=== PATIENT | female | born 1935 | race African-American/Black ===

== ENCOUNTER → 2016-09-06 | Outpatient (CLI) | payer MEDICARE, OTHER ==
--- NOTE | 2016-09-06 13:26 | RADIOLOGY REPORT (SQ) ---
EXAM DESCRIPTION: CT CHEST WITHOUT COMPLETED DATE/TIME: 09/06/2016 12:41 pm REASON FOR STUDY: COUGH R05 COUGH COMPARISON: None. TECHNIQUE: CT scan performed of the chest without intravenous contrast. Images reviewed with lung, soft tissue and bone windows. Reconstructed coronal and sagittal MPR images reviewed. All images st ored on PACS. All CT scanners at this facility use dose modulation, iterative reconstruction, and/or weight based d osing when appropriate to reduce radiation dose to as low as reasonably achievable (ALARA). [facility]: Dose Right [facility]: CareDose [facility]: Dose Right [facility]: Teradose 4D [facility]: Misoca RADIATION DOSE: 7.53 mGy. LIMITATIONS: No technical limitations. FINDINGS: LUNGS AND PLEURA: No masses, infiltrates, pneumothorax. No pleural effusions, calcificati ons. Chronic appearing pleural and parenchymal changes are identified. HILAR AND MEDIASTINAL STRUCTURES: No identified masses or abnormal nodes. No obvious aneurysm. HEART AND VASCULAR STRUCTURES: No aneurysm. No pericardial effusion. UPPER ABDOMEN: No significant findings. Limited exam. THYROID AND OTHER SOFT TISSUES: No masses. No adenopathy. BONES: No significant finding. HARDWARE: None in the chest. OTHER: No other significant findings. IMPRESSION: NO SIGNIFICANT FINDING ON NON-CONTRASTED CHEST CT. TECHNICAL DOCUMENTATION: JOB ID: [id number] Quality ID # [id number]: Final reports with documentation of one or more dose reduction techniques (e.g., Au tomated exposure control, adjustment of the mA and/or kV according to patient size, use of iterative reconstruction technique) 2010 [employer]- All Rights Reserved
== END ==
LOC: RAD 12:32
PROVIDERS: ATTEND Internal Medicine
DX: R05 Cough (principal)
CPT/HCPCS: 71250

== ENCOUNTER 2016-10-13 08:46 | Day surgery (SDC) | payer MEDICARE, OTHER ==
[2016-10-05 11:22] LABS: APPEARANCE,URINE CLEAR; BILIRUBIN,URINE NEGATIVE (NEGATIVE); GLUCOSE, URINE NEGATIVE (NEGATIVE); KETONES,URINE NEGATIVE (NEGATIVE); LEUKOCYTE ESTERASE,URINE NEGATIVE (NEGATIVE); NITRITE,URINE NEGATIVE (NEGATIVE); PROTEIN,URINE NEGATIVE (NEGATIVE); URINE SPECIFIC GRAVITY 1.012; UROBILINOGEN,URINE NEGATIVE mg/dL (<2.0)
[2016-10-05 11:40] LABS: HEMATOCRIT 37.9 % (36.0-47.0); HEMOGLOBIN 12.1 g/dL (12.0-15.5); HGB HCT DIFFERENCE -1.6; MEAN CORPUSCULAR HEMOGLOBIN 25.1 pg (27.0-33.4); MEAN CORPUSCULAR HGB CONC 31.8 g/dL (32.0-36.0); MEAN CORPUSCULAR VOLUME 79 fl (80-97); RED BLOOD COUNT 4.81 10^6/uL (3.72-5.28); RED CELL DISTRIBUTION WIDTH 16.8 % (11.5-14.0)
[2016-10-05 11:43] LABS: ALANINE AMINOTRANSFERASE 19 U/L (9-52); ALKALINE PHOSPHATASE 119 U/L (38-126); ANION GAP 10 (5-19); ASPARTATE AMINO TRANSFERASE 15 U/L (14-36); BILIRUBIN,DIRECT 0.3 mg/dL (0.0-0.4); BILIRUBIN,TOTAL 0.5 mg/dL (0.2-1.3); BLOOD UREA NITROGEN 17 mg/dL (7-20); CALCIUM 9.4 mg/dL (8.4-10.2); CARBON DIOXIDE 33 mmol/L (22-30); CHLORIDE 99 mmol/L (98-107); CREATININE RESULT 0.75 mg/dL (0.52-1.25); GLUCOSE 142 mg/dL (75-110); POTASSIUM 3.7 mmol/L (3.6-5.0); SODIUM 142.3 mmol/L (137-145); TOTAL PROTEIN 7.3 g/dL (6.3-8.2)
--- NOTE | 2016-10-05 12:35 | RADIOLOGY REPORT (SQ) ---
EXAM DESCRIPTION: CHEST PA/LATERAL COMPLETED DATE/TIME: 10/05/2016 11:29 am REASON FOR STUDY: PRE OP COMPARISON: CT chest 09/06/2016 Two-view chest 02/24/2012 EXAM PARAMETERS: NUMBER OF VIEWS: two views TECHNIQUE: Digital Frontal and Lateral radiographic views of the chest acquired. RADIATION DOSE: NA LIMITATIONS: none FINDINGS: LUNGS AND PLEURA: Stable right-sided pleuroparenchymal scarring at the apex. Lungs are hyperinflated with flattening of the hemidiaphragms. Minimal Bandlike scarring or atelectasis at the left lung base. Right lung grossly clear. No pleura l effusions. No pneumothorax. MEDIASTINUM AND HILAR STRUCTURES: No masses or contour abnormalities. HEART AND VASCULAR STRUCTURES: Stable moderate cardiomegaly BONES: Osteoporotic without acute thoracic compression deformity HARDWARE: None in the chest. OTHER: No other significant finding. IMPRESSION: Minimal left basilar atelectasis Lungs are hyperinflated from obstructive disease. Moderate cardiomegaly TECHNICAL DOCUMENTATION: JOB ID: [id number] [employer]- All Rights Reserved
--- NOTE | 2016-10-05 17:04 | EKG REPORT ---
SEVERITY:- ABNORMAL ECG - SINUS RHYTHM LEFT ANTERIOR FASCICULAR BLOCK LEFT VENTRICULAR HYPERTROPHY : Confirmed by: Carolyn Multani MD 05-Oct-2016 17:03:29
[~2016-10-13 08:46] MED LIST: ACETAMINOPHEN 100 ML IV PRN; CEFAZOLIN 2 GM/D5W RTU 2 GM/50 ML RTUPB IV PRN; LACTATED RINGERS 1000 ML IV PRN; LIDOCAINE 0.5% INJ-PF (5 MG/ML) 50 ML SDV SUBCUT PRN
[2016-10-13] MEDS ORDERED: BUPIVACAINE INJ/PF LIPOSOME/PF 266 MG/20 ML SDV ONE (09:33)
[2016-10-13] MEDS ORDERED: BUPIVACAINE HCL 0.5%-EPI 1:200000 INJ/PF 30 ML VIAL ONE (09:33)
[2016-10-13] MEDS ORDERED: ALBUTEROL SULFATE 0.083% NEB 2.5 MG/3 ML AMPUL NEB ONE ×2 (10:33→10:45)
[2016-10-13] MEDS ORDERED: FAMOTIDINE INJ/PF 20 MG/2 ML SDV IV ONE (10:45)
[2016-10-13] MEDS ORDERED: MIDAZOLAM 2 MG/2 ML INJ ONE (10:48)
[2016-10-13] MEDS ORDERED: FENTANYL CITRATE INJ/PF 100 MCG/2 ML AMPUL ONE (10:48)
[2016-10-13] MEDS ORDERED: PROPOFOL INJ 200 MG/20 ML VIAL IV ONE (10:49)
[2016-10-13] MEDS ORDERED: FENTANYL CITRATE INJ/PF 100 MCG/2 ML AMPUL IV PRN ×3 (11:50)
[2016-10-13] MEDS ORDERED: MEPERIDINE HCL/PF INJ 25 MG/1 ML DISP.SYRIN IV PRN (11:50)
[2016-10-13] MEDS ORDERED: MORPHINE SULFATE 10 MG/ML INJ IV PRN (11:50)
[2016-10-13] MEDS ORDERED: DIPHENHYDRAMINE HCL 50 MG/ML VIAL IV PRN (11:50)
[2016-10-13] MEDS ORDERED: PROMETHAZINE HCL INJ 25 MG/1 ML VIAL IV PRN ×2 (11:50)
[2016-10-13] MEDS ORDERED: OXYCODONE-ACETAMINOPHEN 5-325 MG TABLET PO PRN ×2 (11:50)
[2016-10-13] MEDS ORDERED: ACETAMINOPHEN 100 ML IV ONE (12:45)
--- NOTE | 2016-10-13 13:18 | OPERATIVE REPORT E ---
Operative Report NAME: ALEXIS HOWARD : 1935 AGE: 81Y DATE OF SURGERY: 10/13/2016 ROOM: PREOPERATIVE DIAGNOSIS: Grade 4 cystocele and lax perineal body. POSTOPERATIVE DIAGNOSIS: Grade 4 cystocele and lax perineal body. OPERATION PERFORMED: Modified colpocleisis. SURGEON: HALLEY PARRA M.D. ANESTHESIA: General endotracheal. ESTIMATED BLOOD LOSS: 50 mL. SPECIMEN TO PATHOLOGY: None. FINDINGS: There was a grade 4 cystocele approximately the size of an orange extruding from the patient's vaginal introitus. The perineal body was very lax. The patient had been unable to retain even a Gellhorn pessary in the past. The rectum was actually fairly well supported for a couple cm inside the introitus. DESCRIPTION OF PROCEDURE: After discussing the risks, benefits, and alternatives of the procedure and obtaining informed consent, the patient was taken to the operating room where general anesthesia was achieved. She was positioned in the dorsal lithotomy position, prepped and draped in the usual standard fashion. A Bryant catheter was placed to keep the bladder drained. The most dependent portion of the prolapse was grasped with an Allis clamp. The tissue was circumferentially injected with 0.25% Marcaine with epinephrine. The tissue to be excised was incised in quadrants. The underlying bladder was dissected off the vaginal mucosa leaving as much of the endopelvic fascia on the bladder as possible. After excision of all of the redundant tissue, the bladder was reduced with pursestring sutures of 2-0 Vicryl. The final stitch was with 2-0 PDS. The bladder then slipped back into a normal position. The redundant vaginal mucosa had been excised. The mucosa was closed with 2-0 Vicryl. Attention was then turned to the perineal body. The perineal body was injected with 0.25% Marcaine with epinephrine up until just the distal part of the mucosa overlying the rectum was encountered. This was excised in a didier-shaped fashion. The small amount of underlying rectal mucosa was dissected off the vaginal mucosa. The levators were plicated with 0 Vicryl as well as the bulbocavernosus and transverse perineal muscles. The vaginal mucosa was closed with 2-0 Vicryl. Approximately 2 thirds of a bottle of Exparel, which had been mixed with 0.25% Marcaine was then injected around the perineal body and distal vulvar mucosa inferiorly for postop pain relief. The small remaining vagina was irrigated and packed with a vag pack. The patient was taken out of dorsal lithotomy and to recovery in stable condition. All sponge, needle, lap, and instrument counts were correct x2. DICTATING PHYSICIAN: HALLEY PARRA M.D. [id number] PHY#: [id number] ID: [id number] JOB#: [id number] ACCT: [id number] cc:HALLEY PARRA M.D. > MTDD
[2016-10-13] MEDS ORDERED: RINGERS SOLUTION,LACTATED 1,000 ML IV PRN (13:56)
[2016-10-13] MEDS ORDERED: ONDANSETRON HCL INJ/PF 4 MG/2 ML SDV IV PRN (13:56)
[2016-10-13] MEDS ORDERED: DEXAMETHASONE SOD PHOSPHATE INJ 4 MG/1 ML VIAL ONE (15:09)
[2016-10-13] MEDS ORDERED: GLYCOPYRROLATE INJ 0.4 MG/2 ML VIAL ONE ×2 (15:09→15:12)
[2016-10-13] MEDS ORDERED: ONDANSETRON HCL INJ/PF 4 MG/2 ML SDV ONE (15:09)
[2016-10-13] MEDS ORDERED: METOCLOPRAMIDE HCL INJ/PF 10 MG/2 ML SDV ONE (15:09)
[2016-10-13] MEDS ORDERED: SUCCINYLCHOLINE CHLORIDE INJ 200 MG/10 ML VIAL ONE (15:09)
[2016-10-13] MEDS ORDERED: NEOSTIGMINE METHYLSULFATE 10 MG/10 ML VIAL ONE (15:12)
[2016-10-13] MEDS ORDERED: GLYBURIDE 2.5 MG TABLET PO ONE (17:00)
[2016-10-14 06:57] LABS: ABSOLUTE LYMPHOCYTES (AUTO) 2.8 10^3/uL (0.5-4.7); ABSOLUTE MONOCYTES (AUTO) 1.6 10^3/uL (0.1-1.4); ABSOLUTE NEUT (AUTO) 12.5 10^3/uL (1.7-8.2); BASOPHILS % (AUTO) 0.2 % (0-2); EOSINOPHILS % (AUTO) 0.1 % (0-6); HEMOGLOBIN 10.9 g/dL (12.0-15.5); HGB HCT DIFFERENCE -1.3; LYMPHOCYTES % (AUTO) 16.6 % (13-45); MEAN CORPUSCULAR HEMOGLOBIN 25.5 pg (27.0-33.4); MEAN CORPUSCULAR HGB CONC 32.1 g/dL (32.0-36.0); MEAN CORPUSCULAR VOLUME 79 fl (80-97); MONOCYTES % (AUTO) 9.2 % (3-13); RED BLOOD COUNT 4.28 10^6/uL (3.72-5.28); RED CELL DISTRIBUTION WIDTH 16.6 % (11.5-14.0); SEGMENTED NEUTROPHILS % (AUTO) 73.9 % (42-78); WHITE BLOOD COUNT 16.9 10^3/uL (4.0-10.5)
[2016-10-14 07:18] LABS: ANION GAP 9 (5-19); BLOOD UREA NITROGEN 15 mg/dL (7-20); CALCIUM 9.1 mg/dL (8.4-10.2); CARBON DIOXIDE 32 mmol/L (22-30); CHLORIDE 101 mmol/L (98-107); CREATININE RESULT 0.81 mg/dL (0.52-1.25); GLUCOSE 78 mg/dL (75-110); POTASSIUM 3.1 mmol/L (3.6-5.0); SODIUM 141.7 mmol/L (137-145)
[2016-10-14] MEDS ORDERED: ACETAMINOPHEN 325 MG TABLET PO PRN (07:48)
[2016-10-14] MEDS ORDERED: POTASSIUM CHLORIDE 10 MEQ TABLET.SA PO SCH (08:00)
[2016-10-14] MEDS ORDERED: POLYETHYLENE GLYCOL 3350 POWDER 17 GM/1 PACKET PO ONE (09:00)
[2016-10-14 12:26] VITALS: BP 136/59
--- NOTE | 2016-10-14 13:09 | DISCHARGE SUMMARY E ---
Discharge Summary NAME: ALEXIS ZUNIGA : 1935 AGE: 81Y ADMITTED: 10/13/2016 DISCHARGED: 10/14/2016 INDICATION FOR ADMISSION: Grade IV cystocele with desire for colpocleisis versus a tight anterior/posterior repair. HOSPITAL COURSE: Ms. 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 She has been unable to retain pessaries as an outpatient. She elected surgical intervention. She does not plan to be sexually active in the future. She underwent a modified colpocleisis on 10/13/2016. Her bladder had been very distended but there was relatively good posterior support, therefore, after reduction of the marked cystocele with some foreshortening of her vagina. A tight perineorrhaphy was also performed. She had vaginal packing and Bryant catheter placed overnight. By the next morning, her creatinine was stable and hematocrit was 34. Her potassium had fallen to 3.1 and she was given a dose of p.o. K-dur. She had adequate pain control throughout with really no pain medicines as Exparel had been injected into the perineal region at the time of surgery. By the time of discharge, she was voiding without difficulty and had a bowel movement as well. There was only very light bleeding. DISCHARGE DIAGNOSES: 1. Grade IV cystocele. 2. Lax perineal body. PLAN: Patient is discharged to home with light activity and pelvic rest. She was given a sitz bath kit to use daily. She was given a prescription for Vicodin 5/325 one to two p.o. q.i.d. p.r.n. pain, #30, no refills. She has followup on October 21. She will follow up sooner should she develop fever, UTI symptoms, increasing pain, or foul smelling discharge or heavy bleeding. DICTATING PHYSICIAN: HALLEY PARRA M.D. [id number] PHY#: [id number] ID: [id number] JOB#: [id number] ACCT: [id number] cc:HALLEY PARRA M.D. >
== END 2016-10-14 13:05 | disposition home or self-care (01) ==
LOC: OROUT 08:46 → 2N 13:51 → OROUT 10-14 13:05
PROVIDERS: ATTEND Specialist
PROC: 0ULG7ZZ Occlusion of Vagina, Via Natural or Artificial Opening (ICD-10-PCS; principal; 2016-10-13 11:00)
DX: N81.10 Cystocele, unspecified (principal); N93.9 Abnormal uterine and vaginal bleeding, unspecified; I10 Essential (primary) hypertension; J45.909 Unspecified asthma, uncomplicated; E78.5 Hyperlipidemia, unspecified; M06.9 Rheumatoid arthritis, unspecified; D64.9 Anemia, unspecified; E11.9 Type 2 diabetes mellitus without complications; Z96.659 Presence of unspecified artificial knee joint; Z96.641 Presence of right artificial hip joint; Z79.899 Other long term (current) drug therapy; Z79.82 Long term (current) use of aspirin; Z79.84 Long term (current) use of oral hypoglycemic drugs
CPT/HCPCS: 93005; 86900; 86901; 36415 ×2; 87086; 86850; 82962; 85025; 85027; 80048; 80053; 81001; 71020; 94799; 93010; 94640; 57120; J2250; J3490 ×2; J1100; J3010; A9270 ×3; J2765; J0330; J2405; J7120; J2704; S0028; J0690; J0131; C9290; 942

== ENCOUNTER → 2016-12-07 | Outpatient (CLI) | payer MEDICARE, OTHER ==
--- NOTE | 2016-12-07 10:01 | WOMENS IMAGING REPORT ---
EXAM DESCRIPTION: U/S ABDOMEN LIMITED COMPLETED DATE/TIME: 12/07/2016 8:12 am REASON FOR STUDY: EPIGASTRIC PAIN K86.9 DISEASE OF PANCREAS, UNSPECIFIED R10.13 EPIGASTRIC PAIN COMPARISON: CT chest 09/06/2016, Abdominal ultrasound 02/09/2016 TECHNIQUE: Dynamic and static grayscale images acquired of the abdomen and recorded on PACS. Additio nal selected color Doppler and spectral images recorded. LIMITATIONS: None. FINDINGS: PANCREAS: There is a small septated cyst at the pancreatic head which is decreased in size compared to 02/09/2016. On the current study it measures 1.3 x 1.1 cm in size (was 1.8 x 1.6 cm in size on 02/09/2016). This area was not included in the field of view on the CT chest 09/06/2016 LIVER: No masses. Echotexture normal. LIVER VASCULATURE: Normal directional flow of the main portal vein and hepatic veins. GALLBLADDER: No stones. Normal wall thickness. No pericholecystic fluid. ULTRASOUND-DETECTED CHAPMAN'S SIGN: Negative. INTRAHEPATIC DUCTS AND COMMON DUCT: CBD and intrahepatic ducts normal caliber. No filling defects. INFERIOR VENA CAVA: Normal flow. AORTA: No aneurysm. RIGHT KIDNEY: Normal size. Normal echogenicity. No solid or suspicious masses. No hydronephrosis. No calcifications. PERITONEAL AND RIGHT PLEURAL SPACE: No ascites or effusions. OTHER: No other significant findings. IMPRESSION: Decrease in size of small pancreatic head cyst as compared to 02/09/2016. No gallstones, gallbladder wall thickening, or pericholecystic fluid. TECHNICAL DOCUMENTATION: JOB ID: [id number] [employer]- All Rights Reserved
== END ==
LOC: WI 07:32
PROVIDERS: ATTEND Internal Medicine Gastroenterology
DX: K86.9 Disease of pancreas, unspecified (principal); R10.13 Epigastric pain
CPT/HCPCS: 76705

== ENCOUNTER 2017-01-06 20:26 | Inpatient (IN) | payer MEDICARE, OTHER ==
[2017-01-06] MEDS ORDERED: METHYLPREDNISOLONE INJ 125 MG/2 ML SDV IV ONE (20:37)
[2017-01-06] MEDS ORDERED: METHYLPREDNISOLONE INJ 125 MG/2 ML SDV ONE (20:37)
[2017-01-06] MEDS ORDERED: MAGNESIUM SULFATE/D5W 2 GM/200 ML RTUPB IV ONE (20:37)
[2017-01-06] MEDS ORDERED: ALBUTEROL SULFATE 0.083% NEB 2.5 MG/3 ML AMPUL NEB ONE ×2 (20:37)
[2017-01-06] MEDS ORDERED: IPRATROPIUM/ALBUTEROL 0.5-2.5 MG/3 ML AMPUL NEB ONE ×3 (20:37→20:43)
--- NOTE | 2017-01-06 20:39 | ER Document Report ---
ED General - General Chief Complaint: Breathing Difficulty Stated Complaint: DIFFICULTY BREATHING Time Seen by Provider: 01/06/17 20:37 Notes: Patient is a 81-year-old female with a past medical history of asthma and COPD as well as hypertension who presents with 3 days of progressively worsening shortness of breath and cough which became acutely worse tonight. Patient saw her primary care doctor 3 days ago for this complaint was started on azithromycin as well as prednisone at the time but notes that that has not improved her symptoms. States any form of exertion worsens her symptoms. She states over the last 2-3 hours she began to develop progressively worsening shortness of breath and wheezing to the point where she felt she could no longer breathe at all. This prompted her to come to the emergency department. She has had similar symptoms in the past that required hospitalization. She has never required intubation. She denies any active tobacco use. She denies any chest pain, vomiting, fever or constitutional symptoms. TRAVEL OUTSIDE OF THE [place] IN LAST 30 DAYS: No - Related Data Allergies/Adverse Reactions: No Known Allergies Allergy (Verified 02/24/12 12:26) Past Medical History - General Information source: Patient - Social History Smoking Status: Former Smoker Frequency of alcohol use: None Drug Abuse: None Lives with: Spouse/Significant other Family History: Reviewed & Not Pertinent - Past Medical History Cardiac Medical History: Reports: Hx Hypercholesterolemia, Hx Hypertension Denies: Hx Coronary Artery Disease, Hx Heart Attack Pulmonary Medical History: Reports: Hx Asthma - 18-20 years ago, Hx COPD, Hx Pneumonia Denies: Hx Bronchitis, Hx Tuberculosis Neurological Medical History: Denies: Hx Cerebrovascular Accident, Hx Seizures Renal/ Medical History: Denies: Hx Peritoneal Dialysis GI Medical History: Reports: Hx Gastroesophageal Reflux Disease. Denies: Hx Hepatitis, Hx Hiatal Hernia, Hx Ulcer Musculoskeltal Medical History: Reports Hx Arthritis Infectious Medical History: Denies: Hx Hepatitis Past Surgical History: Reports: Hx Hysterectomy. Denies: Hx Mastectomy, Hx Open Heart Surgery, Hx Pacemaker - Immunizations Hx Diphtheria, Pertussis, Tetanus Vaccination: No Hx Pneumococcal Vaccination: 03/17/16 Review of Systems - Review of Systems Notes: Constitutional: Negative for fever. HENT: Negative for sore throat. Eyes: Negative for visual changes. Cardiovascular: Negative for chest pain. Respiratory: positive for shortness of breath. Gastrointestinal: Negative for abdominal pain, vomiting or diarrhea. Genitourinary: Negative for dysuria. Musculoskeletal: Negative for back pain. Skin: Negative for rash. Neurological: Negative for headaches, weakness or numbness. 10 point ROS negative except as marked above and in HPI. Physical Exam - Vital signs Interpretation: Tachycardic, Hypoxic, Tachypneic Notes: PHYSICAL EXAMINATION: GENERAL: Appears unwell, in acute respiratory distress HEAD: Atraumatic, normocephalic. EYES: Pupils equal round and reactive to light, extraocular movements intact, sclera anicteric, conjunctiva are normal. ENT: nares patent, oropharynx clear without exudates. Moderately dry mucous membranes. NECK: Normal range of motion, supple without lymphadenopathy LUNGS: Poor air movement in all lung real. Prolonged expiratory phase with a slight expiratory wheeze. Respiratory distress at the initial respiratory rate of 38 breaths per minute. HEART: Regular tachycardia without murmurs ABDOMEN: Soft, nontender, normoactive bowel sounds. No guarding, no rebound. No masses appreciated. EXTREMITIES: Normal range of motion, no pitting or edema. No cyanosis. NEUROLOGICAL: No focal neurological deficits. Moves all extremities spontaneously and on command. PSYCH: Normal mood, normal affect. SKIN: Warm, Dry, normal turgor, no rashes or lesions noted. Course - Re-evaluation Re-evalutation: 01/06/17 20:38 Patient presents in respiratory distress, tachypneic into the mid 30s, very poor air movement in all lung real with a prolonged expiratory phase and expiratory wheezing. She has a history of asthma requiring hospitalization in the past and this does appear clinically to be consistent with a severe asthma exacerbation. She is unable to speak in full sentences secondary to dyspnea. Immediately upon arrival patient was assessed. An IV will be established. Will begin IV steroids, 2 g of magnesium over 20 minutes and continuous nebulizers will be initiated. A portable chest x-ray be obtained. 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 Patient is critically ill at this time requiring frequent reassessments secondary to her respiratory distress. If she does not clinically improve within the next 10-15 minutes with our initial interventions will proceed with BiPAP for ventilatory assistance. 01/06/17 21:19 Patient has had significant improvement in her lung aeration, now with very prominent wheezing in all lung real. She remains tachypneic although improved from initial presentation now respiratory rate of 26-28 breaths per minute. She is remaining on a continuous nebulizer at this time. Will continue to monitor. Will not initiate BiPAP at this time. Her chest x-ray does not demonstrate any acute infiltrate. 01/06/17 22:08 Patient is now almost complete with her nebulizer treatments and has had dramatic improvement in her respiratory effort, now breathing at 20-23 times a minute. She does still continue to require 2 L by nasal cannula to maintain normal oxygen saturation does not require oxygen at baseline. Given the severity of her initial presentation as well as her advanced age I do not believe that this patient is an appropriate candidate for outpatient treatment as she is ready been receiving steroids and azithromycin as an outpatient and home nebulizers and yet presented in distress today. Will discuss with Dr. Mckinney who is currently covering for Dr. Santiago for admission. 01/06/17 22:15 Patient has been accepted for admission by Dr. Mckinney. - Laboratory Result Diagrams: 01/06/17 20:35 01/06/17 20:35 Laboratory results interpreted by me: 01/06/17 01/06/17 20:35 20:35 WBC 11.2 H MCV 78 L MCH 26.1 L RDW 16.1 H Potassium 3.2 L BUN 21 H Glucose 238 H - Diagnostic Test Radiology reviewed: Image reviewed, Reports reviewed Radiology results interpreted by me: 01/06/17 22:09 Chest x-ray: No acute infiltrate or pneumothorax Critical Care Note - Critical Care Note Total time excluding time spent on procedures (mins): 37 Comments: Critical care time spent obtaining history from patient or surrogate, discussions with consultants, development of treatment plan with patient or surrogate, evaluation of patient's response to treatment, examination of patient , ordering and performing treatments and interventions, ordering and review of laboratory studies, re-evaluation of patient's condition, ordering and review of radiographic studies and review of old charts Discharge - Discharge Clinical Impression: Respiratory distress, COPD exacerbation Condition: Fair Disposition: ADMITTED INPATIENT Admitting Provider: Hank Unit Admitted: [facility]
[2017-01-06] MEDS: MAGNESIUM SULFATE/D5W 1 GM/100 ML RTUPB IV SCH ×2 (20:46→21:45)
--- NOTE | 2017-01-06 21:06 | RADIOLOGY REPORT (SQ) ---
EXAM DESCRIPTION: CHEST SINGLE VIEW COMPLETED DATE/TIME: 01/06/2017 8:56 pm REASON FOR STUDY: sob COMPARISON: 10/05/2016 NUMBER OF VIEWS: One view. TECHNIQUE: Single frontal radiographic view of the chest acquired. LIMITATIONS: None. FINDINGS: LUNGS AND PLEURA: No opacities, masses or pneumothorax. No pleural effusion. Attenuated bl ood vessels and flattened vazquez-diaphragms. MEDIASTINUM AND HILAR STRUCTURES: No masses. Contour normal. HEART AND VASCULAR STRUCTURES: Heart normal in size. Normal vasculature. BONES: No acute findings. HARDWARE: None in the chest. OTHER: No other significant finding. IMPRESSION: COPD. NO ACUTE RADIOGRAPHIC FINDING IN THE CHEST. NO SIGNIFICANT CHANGE FROM PRIOR CARLY DY. TECHNICAL DOCUMENTATION: JOB ID: [id number] [employer]- All Rights Reserved
[2017-01-06 21:11] LABS: ABSOLUTE EOSINOPHILS # (AUTO) 0.4 10^3/uL (0.0-0.6); ABSOLUTE NEUT (AUTO) 6.8 10^3/uL (1.7-8.2); BASOPHILS % (AUTO) 0.3 % (0-2); EOSINOPHILS % (AUTO) 3.8 % (0-6); HEMATOCRIT 36.6 % (36.0-47.0); HEMOGLOBIN 12.3 g/dL (12.0-15.5); HGB HCT DIFFERENCE 0.3; LYMPHOCYTES % (AUTO) 26.4 % (13-45); MEAN CORPUSCULAR HEMOGLOBIN 26.1 pg (27.0-33.4); MEAN CORPUSCULAR HGB CONC 33.6 g/dL (32.0-36.0); MEAN CORPUSCULAR VOLUME 78 fl (80-97); MONOCYTES % (AUTO) 9.1 % (3-13); RED CELL DISTRIBUTION WIDTH 16.1 % (11.5-14.0); SEGMENTED NEUTROPHILS % (AUTO) 60.4 % (42-78); WHITE BLOOD COUNT 11.2 10^3/uL (4.0-10.5)
[2017-01-06 21:26] LABS: ANION GAP 13 (5-19); BLOOD UREA NITROGEN 21 mg/dL (7-20); CALCIUM 9.5 mg/dL (8.4-10.2); CARBON DIOXIDE 30 mmol/L (22-30); CHLORIDE 100 mmol/L (98-107); CREATININE RESULT 0.89 mg/dL (0.52-1.25); GLUCOSE 238 mg/dL (75-110); POTASSIUM 3.2 mmol/L (3.6-5.0); SODIUM 142.8 mmol/L (137-145)
[2017-01-06] MEDS ORDERED: CEFTRIAXONE 1 GM/D5W RTU 1 GM/50 ML RTUPB IV ONE (22:30)
[2017-01-06] MEDS ORDERED: ACETAMINOPHEN 325 MG TABLET PO PRN (22:41)
[2017-01-07] MEDS: METHYLPREDNISOLONE INJ 125 MG/2 ML SDV IV SCH ×4 (03:56→21:20)
[2017-01-07] MEDS: ALBUTEROL SULFATE 0.083% NEB 2.5 MG/3 ML AMPUL NEB PRN (04:56)
[2017-01-07 05:25] LABS: ABSOLUTE LYMPHOCYTES (AUTO) 0.9 10^3/uL (0.5-4.7); ABSOLUTE MONOCYTES (AUTO) 0.2 10^3/uL (0.1-1.4); ABSOLUTE NEUT (AUTO) 10.8 10^3/uL (1.7-8.2); BASOPHILS % (AUTO) 0.1 % (0-2); HEMATOCRIT 34.1 % (36.0-47.0); HEMOGLOBIN 11.3 g/dL (12.0-15.5); HGB HCT DIFFERENCE -0.2; LYMPHOCYTES % (AUTO) 7.5 % (13-45); MEAN CORPUSCULAR HEMOGLOBIN 26.3 pg (27.0-33.4); MEAN CORPUSCULAR HGB CONC 33.3 g/dL (32.0-36.0); MEAN CORPUSCULAR VOLUME 79 fl (80-97); MONOCYTES % (AUTO) 1.6 % (3-13); RED BLOOD COUNT 4.32 10^6/uL (3.72-5.28); RED CELL DISTRIBUTION WIDTH 16.3 % (11.5-14.0); SEGMENTED NEUTROPHILS % (AUTO) 90.8 % (42-78); WHITE BLOOD COUNT 11.9 10^3/uL (4.0-10.5)
[2017-01-07 05:46] LABS: ANION GAP 17 (5-19); BLOOD UREA NITROGEN 21 mg/dL (7-20); CALCIUM 9.4 mg/dL (8.4-10.2); CARBON DIOXIDE 25 mmol/L (22-30); CHLORIDE 99 mmol/L (98-107); CREATININE RESULT 0.75 mg/dL (0.52-1.25); GLUCOSE 326 mg/dL (75-110); SODIUM 141.3 mmol/L (137-145)
[2017-01-07] MEDS: LANSOPRAZOLE 15 MG TAB.RAP.DR PO SCH ×2 (05:47→17:27)
[2017-01-07 05:52] LABS: POTASSIUM 2.9 mmol/L (3.6-5.0)
[2017-01-07] MEDS ORDERED: METHYLPREDNISOLONE INJ 125 MG/2 ML SDV IV SCH ×2 (06:00)
[2017-01-07] MEDS ORDERED: POTASSIUM CHLORIDE 10 MEQ TABLET.SA PO ONE ×3 (07:00→13:59)
[2017-01-07] MEDS ORDERED: DEXTROSE 40% GEL 15 GM TUBE PO PRN (08:05)
[2017-01-07] MEDS ORDERED: DEXTROSE 40% GEL 15 GM TUBE X 2 PO PRN (08:05)
[2017-01-07] MEDS ORDERED: DEXTROSE 50%-WATER SYRINGE 25 GM/50 ML DOSE IV PRN (08:05)
[2017-01-07] MEDS ORDERED: GLUCAGON,HUMAN RECOMB 1 MG INJ IM PRN (08:05)
[2017-01-07] MEDS ORDERED: DEXTROSE 50%-WATER SYRINGE 12.5 GM/25 ML DOSE IV PRN (08:05)
[2017-01-07] MEDS: IPRATROPIUM/ALBUTEROL 0.5-2.5 MG/3 ML AMPUL NEB SCH ×4 (08:08→19:45)
--- NOTE | 2017-01-07 09:33 | PDOC H&P ---
History of Present Illness Admission Date/PCP: 01/06/17 22:41 Patient complains of: Shortness of the breath History of Present Illness: ALEXIS HOWARD is a 81 year old female Is a 81-year-old female with a history of the asthma/COPD currently seeing Dr. Santiago in the last week because of the cough congestion's and patient was given some steroid and some other medications but patient is still not feeling better came to the emergency departments was more short of breath and wheezing patient was given IV steroid and nebulizer treatments and IV magnesiums and patient's dramatically improved When I saw the patient's in the floor patient is currently doing much better patient's denied any chest pain denied any shortness of the breath Patient's denied any heart problem in the past denied any smoking history According to the patient she has this asthma/COPD for a long time but well controlled with the Symbicort but recently is getting more worse Patient's denied any fever Past Medical History Cardiac Medical History: Reports: Hyperlipidema, Hypertension Denies: Coronary Artery Disease, Myocardial Infarction Pulmonary Medical History: Reports: Asthma - 18-20 years ago, Chronic Obstructive Pulmonary Disease (COPD), Pneumonia Denies: Bronchitis, Tuberculosis Neurological Medical History: Denies: Seizures Endocrine Medical History: Reports: Diabetes Mellitus Type 2 GI Medical History: Reports: Gastroesophageal Reflux Disease Denies: Hepatitis, Hiatal Hernia Musculoskeltal Medical History: Reports: Arthritis Hematology: Denies: Anemia, Sickle Cell Disease Past Surgical History Past Surgical History: Reports: Hysterectomy Denies: Amputation, Mastectomy, Pacemaker Social History Lives with: Spouse/Significant other Smoking Status: Never Smoker Hx Recreational Drug Use: No Drugs: None Hx Prescription Drug Abuse: No Family History Family History: Reviewed & Not Pertinent Parental Family History Reviewed: Yes Children Family History Reviewed: Yes Sibling(s) Family History Reviewed.: Yes Medication/Allergy Home Medications: Amlodipine Besylate [Norvasc 10 mg Tablet] 10 mg PO DAILY 02/25/12 Omeprazole [Prilosec 40 mg Capsule] 40 mg PO DAILY 02/25/12 Simvastatin [Zocor 20 mg Tablet] 40 mg PO QHS 02/25/12 Ipratropium/Albuterol Sulfate [Combivent Inhaler] 14.7 gm IH Q8 PRN 02/26/12 Aspirin [Ecotrin] 81 mg PO DAILY 04/14/14 Budesonide/Formoterol Fumarate [Symbicort HFA 160-4.5 mcg Inhaler 6 gm] 1 puff IH Q12 04/14/14 Losartan Potassium [Cozaar 100 mg Tablet] 100 mg PO DAILY 04/14/14 Saxagliptin Hydrochloride [Onglyza] 2.5 mg PO DAILY 04/14/14 Hydrocodone/Acetaminophen [Vicodin 5-300 mg Tablet] 1 - 2 tab PO Q6 PRN Allergies/Adverse Reactions: No Known Allergies Allergy (Verified 02/24/12 12:26) Review of Systems Constitutional: ABSENT: chills, fever(s), headache(s), weight gain, weight loss Eyes: ABSENT: visual disturbances Ears: ABSENT: hearing changes Cardiovascular: PRESENT: dyspnea on exertion. ABSENT: chest pain, edema, orthropnea, palpitations Respiratory: PRESENT: cough, dyspnea. ABSENT: hemoptysis Gastrointestinal: ABSENT: abdominal pain, constipation, diarrhea, hematemesis, hematochezia, nausea, vomiting Genitourinary: ABSENT: dysuria, hematuria Musculoskeletal: ABSENT: joint swelling Integumentary: ABSENT: rash, wounds Neurological: ABSENT: abnormal gait, abnormal speech, confusion, dizziness, focal weakness, syncope Psychiatric: ABSENT: anxiety, depression, homidical ideation, suicidal ideation Endocrine: ABSENT: cold intolerance, heat intolerance, menstrual abnormalities, polydipsia, polyuria Hematologic/Lymphatic: ABSENT: easy bleeding, easy bruising, lymphadenopathy Physical Exam Vital Signs: Temp Pulse Resp BP Pulse Ox 97.6 F 95 20 149/55 H 95 01/07/17 04:29 01/07/17 08:08 01/07/17 08:08 01/07/17 04:29 01/07/17 08:08 Intake & Output 01/06/17 01/07/17 01/08/17 06:59 06:59 06:59 Weight 83.5 kg General appearance: PRESENT: no acute distress, well-developed, well-nourished Head exam: PRESENT: atraumatic, normocephalic Eye exam: PRESENT: conjunctiva pink, EOMI, PERRLA. ABSENT: scleral icterus Ear exam: PRESENT: normal external ear exam Mouth exam: PRESENT: moist, tongue midline Neck exam: PRESENT: full ROM. ABSENT: carotid bruit, JVD, lymphadenopathy, thyromegaly Respiratory exam: PRESENT: clear to auscultation levon Cardiovascular exam: PRESENT: RRR. ABSENT: diastolic murmur, rubs, systolic murmur Pulses: PRESENT: normal dorsalis pedis pul, +2 pedal pulses bilateral Vascular exam: PRESENT: normal capillary refill GI/Abdominal exam: PRESENT: normal bowel sounds, soft. ABSENT: distended, guarding, mass, organolmegaly, rebound, tenderness Rectal exam: PRESENT: deferred Musculoskeletal exam: PRESENT: ambulatory Neurological exam: PRESENT: alert, awake, oriented to person, oriented to place , oriented to time, oriented to situation, CN II-XII grossly intact. ABSENT: motor sensory deficit Psychiatric exam: PRESENT: appropriate affect, normal mood. ABSENT: homicidal ideation, suicidal ideation Skin exam: PRESENT: dry, intact, warm. ABSENT: cyanosis, rash Results Laboratory Results: 01/07/17 04:30 01/07/17 04:30 01/07/17 01/07/17 01/07/17 04:30 04:30 04:30 WBC 11.9 H RBC 4.32 Hgb 11.3 L Hct 34.1 L MCV 79 L MCH 26.3 L MCHC 33.3 RDW 16.3 H Plt Count 269 Seg Neutrophils % 90.8 H Lymphocytes % 7.5 L Monocytes % 1.6 L Eosinophils % 0.0 Basophils % 0.1 Absolute Neutrophils 10.8 H Absolute Lymphocytes 0.9 Absolute Monocytes 0.2 Absolute Eosinophils 0.0 Absolute Basophils 0.0 Sodium 141.3 Potassium 2.9 L* Chloride 99 Carbon Dioxide 25 Anion Gap 17 BUN 21 H Creatinine 0.75 Est GFR ( Amer) > 60 Est GFR (Non-Af Amer) > 60 Glucose 326 H Calcium 9.4 Magnesium 2.6 H Impressions: Chest X-Ray 01/06/17 20:38 IMPRESSION: COPD. NO ACUTE RADIOGRAPHIC FINDING IN THE CHEST. NO SIGNIFICANT CHANGE FROM PRIOR STUDY. Assessment & Plan - Diagnosis (1) COPD exacerbation Is this a current diagnosis for this admission?: Yes Plan: Patient is currently improving reduced to IV steroid to 80 mg and continues a nebulizer treatments (2) Respiratory distress Is this a current diagnosis for this admission?: Yes Plan: Continues to with the 2 L nasal cannula (3) Type 2 diabetes mellitus Qualifiers: Diabetes mellitus complication status: without complication Is this a current diagnosis for this admission?: Yes Plan: Continues to sliding scale and current home medications (4) Hypertension Qualifiers: Hypertension type: essential hypertension Qualified Code(s): I10 - Essential (primary) hypertension Is this a current diagnosis for this admission?: Yes Plan: Currently all stable (5) Hyperlipidemia Qualifiers: Hyperlipidemia type: unspecified Qualified Code(s): E78.5 - Hyperlipidemia , unspecified Is this a current diagnosis for this admission?: Yes - Time Time Spent: 30 to 50 Minutes Medications reviewed and adjusted accordingly: Yes Anticipated discharge: Home Within: Other - Inpatient Certification Medical Necessity: Need Close Monitoring Due to Risk of Patient Decompensation, Need for IV Antibiotics Post Hospital Care: D/C Foot Orthopedist Documentation - Plan Summary Plan Summary: We will repeat the chest x-ray continues to IV antibiotic continues to IV steroid and continues a nebulizer treatments
[2017-01-07] MEDS ORDERED: METHYLPREDNISOLONE INJ 125 MG/2 ML SDV IV ONE (11:00)
--- NOTE | 2017-01-07 11:10 | RADIOLOGY REPORT (SQ) ---
EXAM DESCRIPTION: CHEST PA/LAT COMPLETED DATE/TIME: 01/07/2017 10:27 am REASON FOR STUDY: sob/asthma COMPARISON: AP chest 09/06/2016, 01/06/2017 Two-view chest 02/24/2012 EXAM PARAMETERS: NUMBER OF VIEWS: two views TECHNIQUE: Digital Frontal and Lateral radiographic views of the chest acquired. RADIATION DOSE: NA LIMITATIONS: none FINDINGS: LUNGS AND PLEURA: Lungs are hyperinflated and hyperlucent from obstructive disease. No ac [place] infiltrates. No pleural effusion. Stable right apical pleural-parenchymal scarring. MEDIASTINUM AND HILAR STRUCTURES: No masses or contour abnormalities. HEART AND VASCULAR STRUCTURES: Heart normal size. No evidence for failure. BONES: No acute findings. HARDWARE: None in the chest. OTHER: No other significant finding. IMPRESSION: Obstructive lung disease. No acute findings TECHNICAL DOCUMENTATION: JOB ID: [id number] [employer]- All Rights Reserved
[2017-01-07] MEDS: ENOXAPARIN SODIUM INJ 40 MG/0.4 ML DISP.SYRIN SUBCUT SCH (13:20)
[2017-01-07] MEDS: INSULIN LISPRO 100 UNIT/ML 3 ML VIAL SUBCUT PRN ×3 (13:21→21:42)
[2017-01-07] MEDS ORDERED: ASPIRIN 81 MG TABLET, CHEWABLE PO ONE (14:30)
[2017-01-07] MEDS ORDERED: BUDESONIDE/FORMOTEROL 160-4.5 MCG 60 PUFF/6 GM MDI IH ONE (14:30)
[2017-01-07] MEDS ORDERED: LANSOPRAZOLE 30 MG TAB.RAP.DR PO ONE (14:30)
[2017-01-07] MEDS ORDERED: AMLODIPINE BESYLATE 10 MG TABLET PO ONE (14:30)
[2017-01-07] MEDS ORDERED: CHLORTHALIDONE 25 MG TABLET PO ONE (14:30)
[2017-01-07] MEDS ORDERED: SITAGLIPTIN PHOSPHATE 50 MG TABLET PO ONE (14:30)
[2017-01-07] MEDS: METFORMIN HCL 500 MG TABLET PO SCH (17:27)
[2017-01-07] MEDS: SIMVASTATIN 40 MG TABLET PO SCH (17:27)
[2017-01-07] MEDS: BUDESONIDE/FORMOTEROL 160-4.5 MCG 60 PUFF/6 GM MDI IH SCH (21:20)
[2017-01-07] MEDS: CEFTRIAXONE 1 GM/D5W RTU 1 GM/50 ML RTUPB IV SCH (21:20)
[2017-01-08] MEDS: METHYLPREDNISOLONE INJ 125 MG/2 ML SDV IV SCH ×2 (03:42→08:43)
[2017-01-08] MEDS: ALBUTEROL SULFATE 0.083% NEB 2.5 MG/3 ML AMPUL NEB PRN (03:42)
[2017-01-08] MEDS: LANSOPRAZOLE 15 MG TAB.RAP.DR PO SCH ×2 (07:13→16:36)
[2017-01-08 07:38] LABS: ANION GAP 12 (5-19); BLOOD UREA NITROGEN 22 mg/dL (7-20); CALCIUM 9.9 mg/dL (8.4-10.2); CARBON DIOXIDE 28 mmol/L (22-30); CHLORIDE 98 mmol/L (98-107); CREATININE RESULT 0.87 mg/dL (0.52-1.25); GLUCOSE 271 mg/dL (75-110); POTASSIUM 3.4 mmol/L (3.6-5.0)
[2017-01-08 07:47] LABS: HEMATOCRIT 32.5 % (36.0-47.0); HEMOGLOBIN 10.9 g/dL (12.0-15.5); HGB HCT DIFFERENCE 0.2; MEAN CORPUSCULAR HEMOGLOBIN 26.1 pg (27.0-33.4); MEAN CORPUSCULAR HGB CONC 33.5 g/dL (32.0-36.0); MEAN CORPUSCULAR VOLUME 78 fl (80-97); RED BLOOD COUNT 4.18 10^6/uL (3.72-5.28); RED CELL DISTRIBUTION WIDTH 15.7 % (11.5-14.0)
[2017-01-08] MEDS: IPRATROPIUM/ALBUTEROL 0.5-2.5 MG/3 ML AMPUL NEB SCH ×4 (08:20→19:44)
[2017-01-08] MEDS: SITAGLIPTIN PHOSPHATE 50 MG TABLET PO SCH (08:39)
[2017-01-08] MEDS: LANSOPRAZOLE 30 MG TAB.RAP.DR PO SCH (08:40)
[2017-01-08] MEDS: ASPIRIN 81 MG TABLET, CHEWABLE PO SCH (08:41)
[2017-01-08] MEDS: CHLORTHALIDONE 25 MG TABLET PO SCH (08:41)
[2017-01-08] MEDS: METFORMIN HCL 500 MG TABLET PO SCH ×2 (08:41→16:37)
[2017-01-08] MEDS: AMLODIPINE BESYLATE 10 MG TABLET PO SCH (08:42)
[2017-01-08] MEDS: BUDESONIDE/FORMOTEROL 160-4.5 MCG 60 PUFF/6 GM MDI IH SCH ×2 (08:42→21:25)
[2017-01-08 08:44] LABS: BAND NEUTROPHILS % (MANUAL) 1 % (3-5); BASOPHILS % (MANUAL) 0 % (0-2); EOSINOPHILS % (MANUAL) 0 % (0-6); LYMPHOCYTES % (MANUAL) 5 % (13-45); TOTAL CELLS COUNTED 100
[2017-01-08] MEDS: INSULIN LISPRO 100 UNIT/ML 3 ML VIAL SUBCUT PRN ×3 (08:45→21:24)
[2017-01-08 08:46] LABS: ANISOCYTOSIS 1+; HYPOCHROMASIA SLIGHT; MICROCYTOSIS SLIGHT; OVALOCYTES SLIGHT; POIKILOCYTOSIS SLIGHT
[2017-01-08 08:56] LABS: WHITE BLOOD COUNT 25.9 10^3/uL (4.0-10.5)
[2017-01-08] MEDS: ENOXAPARIN SODIUM INJ 40 MG/0.4 ML DISP.SYRIN SUBCUT SCH (08:59)
[2017-01-08] MEDS ORDERED: (PENDING PHARMACY ID) (Saxagliptin Hcl [Onglyza] 5 MG) PO SCH (10:00)
[2017-01-08] MEDS ORDERED: POTASSIUM CHLORIDE 10 MEQ TABLET.SA PO ONE (12:30)
--- NOTE | 2017-01-08 13:13 | PDOC PROGRESS REPORT ---
Subjective Progress Note for:: 01/08/17 Subjective:: Patient is currently doing fair. Still complains of some cough congestion's with some yellowish discharge sputum Patient also complains of short of breath when she moves around Still requiring a couple of the nasal cannula 02 She has denied any chest pain His white count is elevated Physical Exam Vital Signs: Temp Pulse Resp BP Pulse Ox 98.2 F 89 20 131/41 H 96 01/08/17 08:38 01/08/17 12:21 01/08/17 12:21 01/08/17 08:38 01/08/17 12:21 Intake & Output 01/07/17 01/08/17 01/09/17 06:59 06:59 06:59 Intake Total 1486 2 Balance 1486 2 Weight 83.5 kg 83.6 kg General appearance: PRESENT: no acute distress, well-developed, well-nourished Head exam: PRESENT: atraumatic, normocephalic Eye exam: PRESENT: conjunctiva pink, EOMI, PERRLA. ABSENT: scleral icterus Ear exam: PRESENT: normal external ear exam Mouth exam: PRESENT: moist, tongue midline Neck exam: PRESENT: full ROM. ABSENT: carotid bruit, JVD, lymphadenopathy, thyromegaly Respiratory exam: PRESENT: clear to auscultation levon Cardiovascular exam: PRESENT: RRR. ABSENT: diastolic murmur, rubs, systolic murmur Pulses: PRESENT: normal dorsalis pedis pul, +2 pedal pulses bilateral Vascular exam: PRESENT: normal capillary refill GI/Abdominal exam: PRESENT: normal bowel sounds, soft. ABSENT: distended, guarding, mass, organolmegaly, rebound, tenderness Rectal exam: PRESENT: deferred Neurological exam: PRESENT: alert, awake, oriented to person, oriented to place , oriented to time, oriented to situation, CN II-XII grossly intact. ABSENT: motor sensory deficit Psychiatric exam: PRESENT: appropriate affect, normal mood. ABSENT: homicidal ideation, suicidal ideation Skin exam: PRESENT: dry, intact, warm. ABSENT: cyanosis, rash Results Laboratory Results: 01/08/17 06:32 01/08/17 06:32 01/08/17 01/08/17 06:32 06:32 WBC 25.9 H D RBC 4.18 Hgb 10.9 L Hct 32.5 L MCV 78 L MCH 26.1 L MCHC 33.5 RDW 15.7 H Plt Count 288 Seg Neutrophils % Not Reportable Lymphocytes % Not Reportable Monocytes % Not Reportable Eosinophils % Not Reportable Basophils % Not Reportable Absolute Neutrophils Not Reportable Absolute Lymphocytes Not Reportable Absolute Monocytes Not Reportable Absolute Eosinophils Not Reportable Absolute Basophils Not Reportable Sodium 138.0 Potassium 3.4 L Chloride 98 Carbon Dioxide 28 Anion Gap 12 BUN 22 H Creatinine 0.87 Est GFR ( Amer) > 60 Est GFR (Non-Af Amer) > 60 Glucose 271 H Calcium 9.9 Impressions: Chest X-Ray 01/07/17 00:00 IMPRESSION: Obstructive lung disease. No acute findings Assessment & Plan - Diagnosis (1) COPD exacerbation Is this a current diagnosis for this admission?: Yes Plan: Currently all improving will decrease to IV steroid (2) Respiratory distress Is this a current diagnosis for this admission?: Yes Plan: Continues to with the 2 L nasal cannula (3) Type 2 diabetes mellitus Qualifiers: Diabetes mellitus complication status: without complication Is this a current diagnosis for this admission?: Yes Plan: Continues to sliding scale and current home medications (4) Hypertension Qualifiers: Hypertension type: essential hypertension Qualified Code(s): I10 - Essential (primary) hypertension Is this a current diagnosis for this admission?: Yes Plan: Currently all stable (5) Hyperlipidemia Qualifiers: Hyperlipidemia type: unspecified Qualified Code(s): E78.5 - Hyperlipidemia , unspecified Is this a current diagnosis for this admission?: Yes (6) Leukocytosis Qualifiers: Leukocytosis type: unspecified Qualified Code(s): D72.829 - Elevated white blood cell count, unspecified Is this a current diagnosis for this admission?: Yes Plan: Possible underlying pneumonia with steroid induced We will decrease the steroid start the Levaquin with the Rocephin We will get the CT of the chest to further evaluate - Time Time Spent with patient: 15-24 minutes Medications reviewed and adjusted accordingly: Yes Anticipated discharge: Home Within: Other - Inpatient Certification Medical Necessity: Need for IV Antibiotics Post Hospital Care: D/C Infertility Medical Assistant Documentation - Plan Summary Plan Summary: Continues to current IV antibiotic Get the CT chest
[2017-01-08] MEDS ORDERED: METHYLPREDNISOLONE INJ 125 MG/2 ML SDV IV SCH (14:00)
--- NOTE | 2017-01-08 14:41 | RADIOLOGY REPORT (SQ) ---
EXAM DESCRIPTION: CTA CHEST COMPLETED DATE/TIME: 01/08/2017 2:09 pm REASON FOR STUDY: sob/leucocytosis COMPARISON: Chest CT scan without contrast dated August 2016 TECHNIQUE: CT scan of the chest performed using helical scanning technique with dynamic intravenous contrast injection. Images reviewed with lung, soft tissue and bone windows. Reconstructed coronal and sagittal MPR images reviewed. Additional 3 dimensional post-processing performed to develop Maximal Intensity Projection images (TX P). All images stored on PACS. All CT scanners at this facility use dose modulation, iterative reconstruction, and/or weight based d osing when appropriate to reduce radiation dose to as low as reasonably achievable (ALARA). [facility]: Dose Right [facility]: CareDose [facility]: Dose Right [facility]: Teradose 4D [facility]: Hookflash CONTRAST TYPE AND DOSE: contrast/concentration: Isovue 370.00 mg/ml; Total Contrast Delivered: 80.0 ml; Total Saline Delivered: 77.0 ml Contrast bolus optimized for the pulmonary arteries. Not diagnostic for the aorta. RENAL FUNCTION: Creatinine 0.87 RADIATION DOSE: Up-to-date CT equipment and radiation dose reduction techniques were employed. CTDIv ol: 13.6 - 16.9 mGy. DLP: 564 mGy-cm. . LIMITATIONS: None. FINDINGS: LUNGS AND PLEURA: No masses, infiltrates, pneumothorax. No pleural effusions, calcificati ons. Pleural and parenchymal scarring is again identified in the lung apices which appears stable. AORTA AND GREAT VESSELS: No aneurysm. Contrast bolus not optimized for the aorta. HEART: No pericardial effusion. No significant coronary artery calcifications. PULMONARY ARTERIES: No emboli visualized in the main pulmonary arteries or the segmental branches. HILAR AND MEDIASTINAL STRUCTURES: No identified masses or abnormal nodes. HARDWARE: None in the chest. UPPER ABDOMEN: No significant findings. Limited exam. THYROID AND OTHER SOFT TISSUES: No masses. No adenopathy. BONES: No acute or significant finding. 3D MIPS: Confirm above findings. OTHER: No other significant finding. IMPRESSION: No evidence for pulmonary embolic disease. No acute consolidations or pleural effusions are identified. Other findings as noted above COMMENT: Quality ID # [id number]: Final reports with documentation of one or more dose reduction techniques (e.g., Automated exposure control, adjustment of the mA and/or kV according to patient size, use of iterative reconstruction technique) TECHNICAL DOCUMENTATION: JOB ID: [id number] [employer]- All Rights Reserved
[2017-01-08] MEDS: METHYLPREDNISOLONE INJ 40 MG/1 ML SDV IV SCH ×2 (14:59→21:25)
[2017-01-08] MEDS: LEVOFLOXACIN 500 MG TABLET PO SCH (14:59)
[2017-01-08] MEDS: SIMVASTATIN 40 MG TABLET PO SCH (16:36)
[2017-01-08] MEDS: CEFTRIAXONE 1 GM/D5W RTU 1 GM/50 ML RTUPB IV SCH (21:25)
[2017-01-09 04:56] LABS: HEMATOCRIT 32.8 % (36.0-47.0); HEMOGLOBIN 10.8 g/dL (12.0-15.5); HGB HCT DIFFERENCE -0.4; MEAN CORPUSCULAR HEMOGLOBIN 25.8 pg (27.0-33.4); MEAN CORPUSCULAR VOLUME 78 fl (80-97); RED CELL DISTRIBUTION WIDTH 16.1 % (11.5-14.0); WHITE BLOOD COUNT 25.9 10^3/uL (4.0-10.5)
[2017-01-09 05:00] LABS: ANION GAP 14 (5-19); BLOOD UREA NITROGEN 35 mg/dL (7-20); CALCIUM 9.7 mg/dL (8.4-10.2); CARBON DIOXIDE 25 mmol/L (22-30); CHLORIDE 98 mmol/L (98-107); GLUCOSE 257 mg/dL (75-110); SODIUM 136.5 mmol/L (137-145)
[2017-01-09 05:26] LABS: BAND NEUTROPHILS % (MANUAL) 1 % (3-5); BASOPHILS % (MANUAL) 0 % (0-2); EOSINOPHILS % (MANUAL) 0 % (0-6); LYMPHOCYTES % (MANUAL) 7 % (13-45); TOTAL CELLS COUNTED 100
[2017-01-09 05:30] LABS: ANISOCYTOSIS 1+; MICROCYTOSIS SLIGHT; OVALOCYTES SLIGHT; POIKILOCYTOSIS SLIGHT; TARGET CELLS SLIGHT
[2017-01-09] MEDS: LANSOPRAZOLE 15 MG TAB.RAP.DR PO SCH ×2 (06:25→17:03)
[2017-01-09] MEDS: METHYLPREDNISOLONE INJ 40 MG/1 ML SDV IV SCH ×2 (06:25→13:15)
[2017-01-09] MEDS: IPRATROPIUM/ALBUTEROL 0.5-2.5 MG/3 ML AMPUL NEB SCH ×4 (07:50→19:37)
[2017-01-09] MEDS: CHLORTHALIDONE 25 MG TABLET PO SCH (08:05)
[2017-01-09] MEDS: INSULIN LISPRO 100 UNIT/ML 3 ML VIAL SUBCUT PRN ×4 (08:05→22:19)
[2017-01-09] MEDS: METFORMIN HCL 500 MG TABLET PO SCH ×2 (08:05→17:04)
[2017-01-09] MEDS: LANSOPRAZOLE 30 MG TAB.RAP.DR PO SCH (09:13)
[2017-01-09] MEDS: BUDESONIDE/FORMOTEROL 160-4.5 MCG 60 PUFF/6 GM MDI IH SCH ×2 (09:13→22:19)
[2017-01-09] MEDS: SITAGLIPTIN PHOSPHATE 50 MG TABLET PO SCH (09:13)
[2017-01-09] MEDS: ASPIRIN 81 MG TABLET, CHEWABLE PO SCH (09:13)
[2017-01-09] MEDS: ENOXAPARIN SODIUM INJ 40 MG/0.4 ML DISP.SYRIN SUBCUT SCH (09:13)
[2017-01-09] MEDS: AMLODIPINE BESYLATE 10 MG TABLET PO SCH (09:13)
[2017-01-09] MEDS: LEVOFLOXACIN 500 MG TABLET PO SCH (13:15)
[2017-01-09] MEDS: SIMVASTATIN 40 MG TABLET PO SCH (17:03)
--- NOTE | 2017-01-09 21:06 | PDOC PROGRESS REPORT ---
Subjective Progress Note for:: 01/09/17 Subjective:: Patient was seen by the bedside, she was admitted over the weekend when she presented with shortness of breath, she was evaluated, CTA chest was done it was negative for pulmonary embolism. She was treated with IV Solu-Medrol, she has since developed persistent leukocytosis and hyperglycemia, she has diabetes mellitus, she was seen today by the bedside on auscultation of the chest there is no audible wheeze the lung is clear, the systemic IV Solu-Medrol will be discontinued she will continue inhaled steroid. Physical Exam Vital Signs: Temp Pulse Resp BP Pulse Ox 98.0 F 112 H 20 140/44 H 97 01/09/17 20:12 01/09/17 20:12 01/09/17 15:52 01/09/17 20:12 01/09/17 20:12 Intake & Output 01/08/17 01/09/17 01/10/17 06:59 06:59 06:59 Intake Total 1486 1081 1373 Balance 1486 1081 1373 Weight 83.6 kg 86.6 kg General appearance: PRESENT: no acute distress, well-developed, well-nourished Head exam: PRESENT: atraumatic, normocephalic Eye exam: PRESENT: conjunctiva pink, EOMI, PERRLA Ear exam: PRESENT: normal external ear exam Mouth exam: PRESENT: moist, tongue midline Neck exam: PRESENT: full ROM Respiratory exam: PRESENT: clear to auscultation levon Cardiovascular exam: PRESENT: RRR, +S1, +S2 Vascular exam: PRESENT: normal capillary refill GI/Abdominal exam: PRESENT: normal bowel sounds, soft Rectal exam: PRESENT: deferred Neurological exam: PRESENT: alert, awake, oriented to person, oriented to place , oriented to time, oriented to situation, CN II-XII grossly intact. ABSENT: motor sensory deficit Psychiatric exam: PRESENT: appropriate affect, normal mood. ABSENT: homicidal ideation, suicidal ideation Skin exam: PRESENT: dry, intact, warm Results Laboratory Results: 01/09/17 04:14 01/09/17 04:14 01/09/17 01/09/17 04:14 04:14 WBC 25.9 H RBC 4.20 Hgb 10.8 L Hct 32.8 L MCV 78 L MCH 25.8 L MCHC 33.0 RDW 16.1 H Plt Count 273 Seg Neutrophils % Not Reportable Lymphocytes % Not Reportable Monocytes % Not Reportable Eosinophils % Not Reportable Basophils % Not Reportable Absolute Neutrophils Not Reportable Absolute Lymphocytes Not Reportable Absolute Monocytes Not Reportable Absolute Eosinophils Not Reportable Absolute Basophils Not Reportable Sodium 136.5 L Potassium 4.0 Chloride 98 Carbon Dioxide 25 Anion Gap 14 BUN 35 H Creatinine 1.10 Est GFR ( Amer) 58 L Est GFR (Non-Af Amer) 48 L Glucose 257 H Calcium 9.7 Impressions: Chest X-Ray 01/07/17 00:00 IMPRESSION: Obstructive lung disease. No acute findings Chest/Abdomen CTA 01/08/17 00:00 IMPRESSION: No evidence for pulmonary embolic disease. No acute consolidations or pleural effusions are identified. Other findings as noted above Assessment & Plan - Diagnosis (1) Moderate persistent asthma with (acute) exacerbation Is this a current diagnosis for this admission?: Yes Plan: She has moderate persistent asthma with acute exacerbation, the IV Solu-Medrol be discontinued she be treated with inhaled steroid. (2) Leukocytosis Qualifiers: Leukocytosis type: unspecified Qualified Code(s): D72.829 - Elevated white blood cell count, unspecified Is this a current diagnosis for this admission?: Yes (3) Respiratory distress Is this a current diagnosis for this admission?: Yes (4) Type 2 diabetes mellitus Qualifiers: Diabetes mellitus complication status: without complication Is this a current diagnosis for this admission?: Yes
[2017-01-09] MEDS: CEFTRIAXONE 1 GM/D5W RTU 1 GM/50 ML RTUPB IV SCH (22:19)
[2017-01-10] MEDS: LANSOPRAZOLE 15 MG TAB.RAP.DR PO SCH ×2 (06:49→17:12)
[2017-01-10] MEDS: IPRATROPIUM/ALBUTEROL 0.5-2.5 MG/3 ML AMPUL NEB SCH ×4 (07:31→19:48)
[2017-01-10] MEDS: INSULIN LISPRO 100 UNIT/ML 3 ML VIAL SUBCUT PRN ×3 (08:02→17:12)
[2017-01-10] MEDS: CHLORTHALIDONE 25 MG TABLET PO SCH (08:04)
[2017-01-10 08:09] LABS: HEMATOCRIT 37.3 % (36.0-47.0); HEMOGLOBIN 12.3 g/dL (12.0-15.5); HGB HCT DIFFERENCE -0.4; MEAN CORPUSCULAR HEMOGLOBIN 25.6 pg (27.0-33.4); MEAN CORPUSCULAR HGB CONC 32.9 g/dL (32.0-36.0); MEAN CORPUSCULAR VOLUME 78 fl (80-97); RED BLOOD COUNT 4.79 10^6/uL (3.72-5.28); RED CELL DISTRIBUTION WIDTH 16.2 % (11.5-14.0); WHITE BLOOD COUNT 24.3 10^3/uL (4.0-10.5)
[2017-01-10 08:30] LABS: BASOPHILS % (MANUAL) 0 % (0-2); EOSINOPHILS % (MANUAL) 0 % (0-6); LYMPHOCYTES % (MANUAL) 8 % (13-45); TOTAL CELLS COUNTED 100
[2017-01-10 08:31] LABS: ANISOCYTOSIS 1+; MICROCYTOSIS SLIGHT
[2017-01-10 08:32] LABS: PLATELET CLUMPS PRESENT
[2017-01-10 08:34] LABS: HYPOCHROMASIA SLIGHT; OVALOCYTES SLIGHT; POIKILOCYTOSIS SLIGHT; TARGET CELLS 1+
[2017-01-10] MEDS: METFORMIN HCL 500 MG TABLET PO SCH ×2 (08:45→17:12)
[2017-01-10] MEDS: AMLODIPINE BESYLATE 10 MG TABLET PO SCH (09:30)
[2017-01-10] MEDS: ENOXAPARIN SODIUM INJ 40 MG/0.4 ML DISP.SYRIN SUBCUT SCH (09:30)
[2017-01-10] MEDS: LANSOPRAZOLE 30 MG TAB.RAP.DR PO SCH (09:31)
[2017-01-10] MEDS: ASPIRIN 81 MG TABLET, CHEWABLE PO SCH (09:31)
[2017-01-10] MEDS: BUDESONIDE/FORMOTEROL 160-4.5 MCG 60 PUFF/6 GM MDI IH SCH ×2 (09:31→22:48)
[2017-01-10] MEDS: SITAGLIPTIN PHOSPHATE 50 MG TABLET PO SCH (09:32)
[2017-01-10] MEDS: LEVOFLOXACIN 500 MG TABLET PO SCH (13:03)
[2017-01-10] MEDS: SIMVASTATIN 40 MG TABLET PO SCH (17:12)
[2017-01-10] MEDS ORDERED: GLUCAGON,HUMAN RECOMB 1 MG INJ IM PRN (17:46)
[2017-01-10] MEDS ORDERED: DEXTROSE 40% GEL 15 GM TUBE PO PRN ×2 (17:46)
[2017-01-10] MEDS ORDERED: DEXTROSE 50%-WATER 25 GM/50 ML DISP.SYRIN IV PRN ×2 (17:46)
[2017-01-10] MEDS: METHYLPREDNISOLONE INJ 125 MG/2 ML SDV IV SCH (18:31)
[2017-01-10] MEDS: NORMAL SALINE 100 ML with INSULIN REGULAR, HUMAN 100 UNIT IV PRN ×2 (18:31)
--- NOTE | 2017-01-10 21:21 | PDOC PROGRESS REPORT ---
Subjective Progress Note for:: 01/10/17 Subjective:: Patient was seen by the bedside, yesterday when she was evaluated on auscultation of the lung there was no wheeze but today she was audibly wheezing , yesterday she was taken off Solu-Medrol. She is very symptomatic she gets short of breath on mild exertion. Physical Exam Vital Signs: Temp Pulse Resp BP Pulse Ox 97.6 F 107 H 21 H 130/60 H 95 01/10/17 19:09 01/10/17 19:09 01/10/17 19:09 01/10/17 19:09 01/10/17 19:09 Intake & Output 01/09/17 01/10/17 01/11/17 06:59 06:59 06:59 Intake Total 1081 1593 951 Balance 1081 1593 951 Weight 86.6 kg 86.1 kg General appearance: PRESENT: severe distress Head exam: PRESENT: atraumatic, normocephalic Eye exam: PRESENT: conjunctiva pink, EOMI, PERRLA Ear exam: PRESENT: normal external ear exam Mouth exam: PRESENT: moist, tongue midline Neck exam: PRESENT: full ROM Respiratory exam: PRESENT: wheezes Cardiovascular exam: PRESENT: RRR, +S1, +S2 Pulses: PRESENT: normal dorsalis pedis pul, +2 pedal pulses bilateral Vascular exam: PRESENT: normal capillary refill GI/Abdominal exam: PRESENT: normal bowel sounds, soft Rectal exam: PRESENT: deferred Neurological exam: PRESENT: alert, awake, oriented to person, oriented to place , oriented to time, oriented to situation, CN II-XII grossly intact Psychiatric exam: PRESENT: appropriate affect, normal mood Skin exam: PRESENT: dry, intact, warm Results Laboratory Results: 01/10/17 07:58 01/09/17 04:14 01/10/17 07:58 WBC 24.3 H RBC 4.79 Hgb 12.3 Hct 37.3 MCV 78 L MCH 25.6 L MCHC 32.9 RDW 16.2 H Plt Count 344 Seg Neutrophils % Not Reportable Lymphocytes % Not Reportable Monocytes % Not Reportable Eosinophils % Not Reportable Basophils % Not Reportable Absolute Neutrophils Not Reportable Absolute Lymphocytes Not Reportable Absolute Monocytes Not Reportable Absolute Eosinophils Not Reportable Absolute Basophils Not Reportable Impressions: Chest X-Ray 01/07/17 00:00 IMPRESSION: Obstructive lung disease. No acute findings Chest/Abdomen CTA 01/08/17 00:00 IMPRESSION: No evidence for pulmonary embolic disease. No acute consolidations or pleural effusions are identified. Other findings as noted above Assessment & Plan - Diagnosis (1) Moderate persistent asthma with (acute) exacerbation Is this a current diagnosis for this admission?: Yes Plan: She is started back on Solu-Medrol 125 mg IV every 8 hours, because she is a diabetic ,we anticipate severe hypoglycemia she will be started on insulin drip (2) Leukocytosis Qualifiers: Leukocytosis type: unspecified Qualified Code(s): D72.829 - Elevated white blood cell count, unspecified Is this a current diagnosis for this admission?: Yes (3) Respiratory distress Is this a current diagnosis for this admission?: Yes (4) Type 2 diabetes mellitus Qualifiers: Diabetes mellitus complication status: without complication Is this a current diagnosis for this admission?: Yes
[2017-01-10] MEDS: CEFTRIAXONE 1 GM/D5W RTU 1 GM/50 ML RTUPB IV SCH (22:47)
[2017-01-10 23:29] LABS: ANION GAP 14 (5-19); BLOOD UREA NITROGEN 28 mg/dL (7-20); CARBON DIOXIDE 28 mmol/L (22-30); CHLORIDE 94 mmol/L (98-107); GLUCOSE 290 mg/dL (75-110); SODIUM 135.9 mmol/L (137-145)
[2017-01-11] MEDS: METHYLPREDNISOLONE INJ 125 MG/2 ML SDV IV SCH ×3 (01:55→18:19)
[2017-01-11 03:16] LABS: ANION GAP 12 (5-19); BLOOD UREA NITROGEN 27 mg/dL (7-20); CALCIUM 9.9 mg/dL (8.4-10.2); CARBON DIOXIDE 30 mmol/L (22-30); CHLORIDE 96 mmol/L (98-107); CREATININE RESULT 0.88 mg/dL (0.52-1.25); GLUCOSE 158 mg/dL (75-110); POTASSIUM 3.5 mmol/L (3.6-5.0); SODIUM 137.7 mmol/L (137-145)
[2017-01-11] MEDS: LANSOPRAZOLE 15 MG TAB.RAP.DR PO SCH ×2 (05:45→16:40)
[2017-01-11] MEDS: IPRATROPIUM/ALBUTEROL 0.5-2.5 MG/3 ML AMPUL NEB SCH ×3 (07:50→15:57)
[2017-01-11 07:55] LABS: ANION GAP 8 (5-19); BLOOD UREA NITROGEN 26 mg/dL (7-20); CALCIUM 10.3 mg/dL (8.4-10.2); CARBON DIOXIDE 38 mmol/L (22-30); CHLORIDE 96 mmol/L (98-107); CREATININE RESULT 0.93 mg/dL (0.52-1.25); GLUCOSE 66 mg/dL (75-110); SODIUM 141.7 mmol/L (137-145)
[2017-01-11 08:13] LABS: POTASSIUM 4.5 mmol/L (3.6-5.0)
[2017-01-11] MEDS: CHLORTHALIDONE 25 MG TABLET PO SCH (08:57)
[2017-01-11] MEDS: METFORMIN HCL 500 MG TABLET PO SCH ×2 (08:58→16:40)
[2017-01-11] MEDS: ENOXAPARIN SODIUM INJ 40 MG/0.4 ML DISP.SYRIN SUBCUT SCH (10:31)
[2017-01-11] MEDS: AMLODIPINE BESYLATE 10 MG TABLET PO SCH (10:32)
[2017-01-11] MEDS: LANSOPRAZOLE 30 MG TAB.RAP.DR PO SCH (10:32)
[2017-01-11] MEDS: ASPIRIN 81 MG TABLET, CHEWABLE PO SCH (10:32)
[2017-01-11] MEDS: SITAGLIPTIN PHOSPHATE 50 MG TABLET PO SCH (10:32)
[2017-01-11] MEDS: BUDESONIDE/FORMOTEROL 160-4.5 MCG 60 PUFF/6 GM MDI IH SCH ×2 (10:33→21:44)
[2017-01-11] MEDS: NORMAL SALINE 100 ML with INSULIN REGULAR, HUMAN 100 UNIT IV PRN ×2 (11:19)
[2017-01-11] MEDS: LEVOFLOXACIN 500 MG TABLET PO SCH (15:32)
--- NOTE | 2017-01-11 16:25 | PDOC PROGRESS REPORT ---
Subjective Progress Note for:: 01/11/17 Subjective:: She was seen by the bedside yesterday she was started on high-dose Solu-Medrol 125 mg every 8 hours, she was seen she is much better on auscultation of her chest there is less wheezing Physical Exam Vital Signs: Temp Pulse Resp BP Pulse Ox 97.4 F 81 16 135/54 H 99 01/11/17 11:09 01/11/17 12:21 01/11/17 12:21 01/11/17 11:09 01/11/17 12:21 Intake & Output 01/10/17 01/11/17 01/12/17 06:59 06:59 06:59 Intake Total 1593 2531 Balance 1593 2531 Weight 86.1 kg 86.1 kg General appearance: PRESENT: no acute distress, well-developed, well-nourished Head exam: PRESENT: atraumatic, normocephalic Eye exam: PRESENT: conjunctiva pink, EOMI, PERRLA. ABSENT: scleral icterus Ear exam: PRESENT: normal external ear exam Mouth exam: PRESENT: moist, tongue midline Neck exam: PRESENT: full ROM Respiratory exam: PRESENT: wheezes Cardiovascular exam: PRESENT: RRR, +S1, +S2 Pulses: PRESENT: normal dorsalis pedis pul, +2 pedal pulses bilateral Vascular exam: PRESENT: normal capillary refill GI/Abdominal exam: PRESENT: normal bowel sounds, soft Rectal exam: PRESENT: deferred Neurological exam: PRESENT: alert, awake, oriented to person, oriented to place , oriented to time, oriented to situation, CN II-XII grossly intact Psychiatric exam: PRESENT: appropriate affect, normal mood Skin exam: PRESENT: dry, intact, warm Results Laboratory Results: 01/10/17 07:58 01/11/17 07:08 01/10/17 01/11/17 01/11/17 23:05 02:53 07:08 Sodium 135.9 L 137.7 141.7 Potassium 4.0 3.5 L 4.5 D Chloride 94 L 96 L 96 L Carbon Dioxide 28 30 38 H Anion Gap 14 12 8 BUN 28 H 27 H 26 H Creatinine 1.00 0.88 0.93 Est GFR ( Amer) > 60 > 60 > 60 Est GFR (Non-Af Amer) 53 L > 60 58 L Glucose 290 H 158 H 66 L Calcium 10.0 9.9 10.3 H Impressions: Chest X-Ray 01/07/17 00:00 IMPRESSION: Obstructive lung disease. No acute findings Chest/Abdomen CTA 01/08/17 00:00 IMPRESSION: No evidence for pulmonary embolic disease. No acute consolidations or pleural effusions are identified. Other findings as noted above Assessment & Plan - Diagnosis (1) Moderate persistent asthma with (acute) exacerbation Is this a current diagnosis for this admission?: Yes (2) Leukocytosis Qualifiers: Leukocytosis type: unspecified Qualified Code(s): D72.829 - Elevated white blood cell count, unspecified Is this a current diagnosis for this admission?: Yes (3) Respiratory distress Is this a current diagnosis for this admission?: Yes (4) Type 2 diabetes mellitus Qualifiers: Diabetes mellitus complication status: without complication Is this a current diagnosis for this admission?: Yes - Plan Summary Plan Summary: The Solu-Medrol dose to be reduced to 60mg she will continue insulin drip and other treatment
[2017-01-11] MEDS: IPRATROPIUM/ALBUTEROL 0.5-2.5 MG/3 ML AMPUL NEB PRN ×2 (16:38→19:18)
[2017-01-11] MEDS: SIMVASTATIN 40 MG TABLET PO SCH (18:19)
[2017-01-11] MEDS: CEFTRIAXONE 1 GM/D5W RTU 1 GM/50 ML RTUPB IV SCH (21:44)
[2017-01-11] MEDS: INSULIN LISPRO 100 UNIT/ML 3 ML VIAL SUBCUT PRN (21:44)
[2017-01-12] MEDS: METHYLPREDNISOLONE INJ 125 MG/2 ML SDV IV SCH ×3 (02:21→17:34)
[2017-01-12] MEDS: LANSOPRAZOLE 15 MG TAB.RAP.DR PO SCH ×2 (06:16→16:28)
[2017-01-12] MEDS: CHLORTHALIDONE 25 MG TABLET PO SCH (07:27)
[2017-01-12] MEDS: INSULIN LISPRO 100 UNIT/ML 3 ML VIAL SUBCUT PRN ×3 (07:27→16:28)
[2017-01-12] MEDS: METFORMIN HCL 500 MG TABLET PO SCH ×2 (07:34→16:29)
[2017-01-12] MEDS: IPRATROPIUM/ALBUTEROL 0.5-2.5 MG/3 ML AMPUL NEB PRN ×4 (07:56→20:00)
[2017-01-12] MEDS: SITAGLIPTIN PHOSPHATE 50 MG TABLET PO SCH (09:10)
[2017-01-12] MEDS: BUDESONIDE/FORMOTEROL 160-4.5 MCG 60 PUFF/6 GM MDI IH SCH (09:10)
[2017-01-12] MEDS: ENOXAPARIN SODIUM INJ 40 MG/0.4 ML DISP.SYRIN SUBCUT SCH (09:10)
[2017-01-12] MEDS: ASPIRIN 81 MG TABLET, CHEWABLE PO SCH (09:11)
[2017-01-12] MEDS: AMLODIPINE BESYLATE 10 MG TABLET PO SCH (09:11)
[2017-01-12] MEDS: LANSOPRAZOLE 30 MG TAB.RAP.DR PO SCH (09:11)
[2017-01-12] MEDS: LEVOFLOXACIN 500 MG TABLET PO SCH (13:07)
[2017-01-12] MEDS: SIMVASTATIN 40 MG TABLET PO SCH (17:35)
--- NOTE | 2017-01-12 18:21 | PDOC DISCHARGE SUMMARY ---
General - Admit/Disc Date/PCP Admission Date/Primary Care Provider: 01/06/17 22:41 Discharge Date: 01/12/17 - Discharge Diagnosis (1) Moderate persistent asthma with (acute) exacerbation Is this a current diagnosis for this admission?: Yes (2) Leukocytosis Is this a current diagnosis for this admission?: Yes (3) Respiratory distress Is this a current diagnosis for this admission?: Yes (4) Type 2 diabetes mellitus Is this a current diagnosis for this admission?: Yes - Additional Information Discharge Diet: Diabetic Home Medications: Amlodipine Besylate [Norvasc 10 mg Tablet] 10 mg PO DAILY 01/07/17 Aspirin [Aspirin 81 mg Chewable Tablet] 81 mg PO DAILY 01/07/17 Chlorthalidone [Chlorthalidone 25 mg Tablet] 25 mg PO QAM 01/07/17 Metformin HCl [Glucophage] 1,000 mg PO BIDBS 01/07/17 Omeprazole 40 mg PO DAILY 01/07/17 Saxagliptin HCl [Onglyza] 5 mg PO DAILY 01/07/17 Simvastatin [Zocor 40 mg Tablet] 40 mg PO QPM 01/07/17 Budesonide/Formoterol Fumarate [Symbicort 160-4.5 Mcg Inhaler] 2 puff IH Q12 #2 hfa.aer.ad 01/12/17 Ipratropium/Albuterol Sulfate [Duoneb 3 ml Ampul] 3 ml NEB RTQ3HP PRN #120 vial.neb 01/12/17 Prednisone 20 mg PO DAILY #30 tablet 01/12/17 History of Present Illness History of Present Illness: ALEXIS HOWARD is a 81 year old female, she has a history of moderate to severe persistent asthma, she presented with acute exacerbation of persistent asthma. Hospital Course Hospital Course: She failed outpatient treatment for moderate persistent asthma with acute exacerbation, she presented about the weekend with worsening shortness of breath , cough. A CAT scan angiogram of the chest was done, it was negative for pulmonary embolism, there was no pneumonia. She was treated with intravenous Solu-Medrol, she has a history of diabetes mellitus, she required insulin drip because of the severely elevated blood sugar. She is much improved, plan is to discharge patient home today Physical Exam Vital Signs: Temp Pulse Resp BP Pulse Ox 97.5 F 83 16 126/54 H 98 01/12/17 11:07 01/12/17 15:17 01/12/17 15:17 01/12/17 11:07 01/12/17 15:17 Intake & Output 01/11/17 01/12/17 01/13/17 06:59 06:59 06:59 Intake Total 2531 2912 750 Balance 2531 2912 750 Weight 86.1 kg 85 kg 85 kg General appearance: PRESENT: no acute distress, well-developed, well-nourished Head exam: PRESENT: atraumatic, normocephalic Eye exam: PRESENT: conjunctiva pink, EOMI, PERRLA Ear exam: PRESENT: normal external ear exam Mouth exam: PRESENT: moist, tongue midline Neck exam: PRESENT: full ROM Respiratory exam: PRESENT: clear to auscultation levon Cardiovascular exam: PRESENT: RRR, +S1, +S2 Pulses: PRESENT: normal dorsalis pedis pul, +2 pedal pulses bilateral Vascular exam: PRESENT: normal capillary refill GI/Abdominal exam: PRESENT: normal bowel sounds, soft Rectal exam: PRESENT: deferred Neurological exam: PRESENT: alert, awake, oriented to person, oriented to place , oriented to time, oriented to situation, CN II-XII grossly intact Psychiatric exam: PRESENT: appropriate affect, normal mood Skin exam: PRESENT: dry, intact, warm Results Laboratory Results: 01/10/17 07:58 01/11/17 07:08 01/07/17 07:52 Blood Blood Culture - Final NO GROWTH IN 5 DAYS Impressions: Chest X-Ray 01/07/17 00:00 IMPRESSION: Obstructive lung disease. No acute findings Chest/Abdomen CTA 01/08/17 00:00 IMPRESSION: No evidence for pulmonary embolic disease. No acute consolidations or pleural effusions are identified. Other findings as noted above
[2017-01-12 18:38] VITALS: BP 98/69
== END 2017-01-12 19:00 | disposition home or self-care (01) | DRG 202 ==
LOC: ER 20:26 → UNDOADMIN 22:23 → EH 22:23 → 3N 01-07 01:35
PROVIDERS: ADMIT Family Medicine; ATTEND Internal Medicine
DX: J45.41 Moderate persistent asthma with (acute) exacerbation (principal); J44.1 Chronic obstructive pulmonary disease with (acute) exacerbation; E78.5 Hyperlipidemia, unspecified; I10 Essential (primary) hypertension; K21.9 Gastro-esophageal reflux disease without esophagitis; E11.9 Type 2 diabetes mellitus without complications; M19.90 Unspecified osteoarthritis, unspecified site; R06.00 Dyspnea, unspecified; Z87.891 Personal history of nicotine dependence; Z79.82 Long term (current) use of aspirin; Z79.51 Long term (current) use of inhaled steroids; Z79.899 Other long term (current) drug therapy
CPT/HCPCS: 36415; 71010; 71020; 71275; 80048; 82962; 83735; 85025; 87040; 87077; 94640; 96365; 96366; 96375; 99291; J0696; J1650; J1815; J2920; J2930; J3475; J3490; J7620

== ENCOUNTER 2017-06-27 15:58 | Observation (INO) | payer MEDICARE, OTHER ==
[2017-06-27 17:38] LABS: HEMOGLOBIN 12.4 g/dL (12.0-15.5); MEAN CORPUSCULAR HEMOGLOBIN 25.1 pg (27.0-33.4); MEAN CORPUSCULAR HGB CONC 32.7 g/dL (32.0-36.0); MEAN CORPUSCULAR VOLUME 77 fl (80-97); PLATELET COUNT 327 10^3/uL (150-450); RED BLOOD COUNT 4.95 10^6/uL (3.72-5.28); RED CELL DISTRIBUTION WIDTH 17.4 % (11.5-14.0); WHITE BLOOD COUNT 9.7 10^3/uL (4.0-10.5)
[2017-06-27 17:59] LABS: ALANINE AMINOTRANSFERASE 26 U/L (9-52); ALBUMIN 3.9 g/dL (3.5-5.0); ALKALINE PHOSPHATASE 81 U/L (38-126); ANION GAP 10 (5-19); ASPARTATE AMINO TRANSFERASE 15 U/L (14-36); BILIRUBIN,DIRECT 0.3 mg/dL (0.0-0.4); BILIRUBIN,TOTAL 0.3 mg/dL (0.2-1.3); BLOOD UREA NITROGEN 21 mg/dL (7-20); CALCIUM 9.8 mg/dL (8.4-10.2); CARBON DIOXIDE 31 mmol/L (22-30); CHLORIDE 103 mmol/L (98-107); CREATINE KINASE 67 U/L (30-135); GLUCOSE 107 mg/dL (75-110); POTASSIUM 3.1 mmol/L (3.6-5.0); TOTAL PROTEIN 6.6 g/dL (6.3-8.2)
[2017-06-27] MEDS ORDERED: ASPIRIN 81 MG TABLET, CHEWABLE PO SCH ×2 (18:00→21:00)
[2017-06-27 18:10] LABS: CREATINE KINASE MB 0.43 ng/mL (<4.55)
[2017-06-27 18:12] LABS: TROPONIN I < 0.012 ng/mL
[2017-06-27 18:14] LABS: FREE T4 (FREE THYROXINE) 1.14 ng/dL (0.78-2.19)
[2017-06-27 18:28] LABS: THYROID STIMULATING HORMONE 1.85 uIU/mL (0.47-4.68)
[2017-06-27] MEDS ORDERED: IPRATROPIUM/ALBUTEROL 0.5-2.5 MG/3 ML AMPUL NEB PRN (21:00)
--- NOTE | 2017-06-27 21:11 | PDOC H&P ---
History of Present Illness Admission Date/PCP: 06/27/17 15:58 MICHAEL HERRERA MD History of Present Illness: ALEXIS HOWARD is a 82 year old female, She has history of type 2 diabetes mellitus, moderate persistent asthma, primarily generalized osteoarthritis, she came to the office this morning for evaluation of chest pain, the chest pain is vague in character,the pain is in the upper part of the chest also also seems to affect the shoulders the pain is of 3-4 weeks duration, the pain is not typical in character is not provoked by exertion or emotional is not relieved by rest, in the office a 12-lead EKG was done, it was sinus rhythm there was Q- wave in septal leads 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 Because she has multiple risk factors for ischemic heart disease including type 2 diabetes mellitus, hypertension, age and also the fact that the EKG was abnormal it was felt that she should be admitted to the hospital to rule out acute coronary syndrome. Past Medical History Cardiac Medical History: Reports: Hyperlipidema, Hypertension Pulmonary Medical History: Reports: Asthma - 18-20 years ago, Chronic Obstructive Pulmonary Disease (COPD), Pneumonia Endocrine Medical History: Reports: Diabetes Mellitus Type 2 GI Medical History: Reports: Gastroesophageal Reflux Disease Musculoskeltal Medical History: Reports: Arthritis Hematology: Denies: Anemia, Sickle Cell Disease Past Surgical History Past Surgical History: Reports: Hysterectomy Social History Smoking Status: Never Smoker Frequency of Alcohol Use: None Hx Recreational Drug Use: No Drugs: None Hx Prescription Drug Abuse: No Family History Family History: Reviewed & Not Pertinent Parental Family History Reviewed: Yes Children Family History Reviewed: Yes Sibling(s) Family History Reviewed.: Yes Medication/Allergy Home Medications: Amlodipine Besylate [Norvasc 10 mg Tablet] 10 mg PO DAILY 06/27/17 Aspirin [Aspirin 81 mg Chewable Tablet] 81 mg PO DAILY 06/27/17 Budesonide/Formoterol Fumarate [Symbicort Hfa 160-4.5 Mcg Inhaler 6 gm] 2 puff IH Q12 06/27/17 Chlorthalidone [Chlorthalidone 25 mg Tablet] 25 mg PO DAILY 06/27/17 Cyclosporine 0.05% Oph Emulsio [Restasis 0.05% Opthalmic Droperette] 1 drop OU Q12 06/27/17 Empagliflozin/Metformin HCl [Synjardy Xr 25-1,000 mg Tablet] 1 each PO QAM 06/27 Ipratropium/Albuterol Sulfate [Duoneb 3 ml Ampul] 3 ml NEB RTQ3HP PRN 06/27/17 Pantoprazole Sodium [Protonix] 40 mg PO Q6AM 06/27/17 Saxagliptin HCl [Onglyza] 5 mg PO QAM 06/27/17 Simvastatin [Zocor 40 mg Tablet] 40 mg PO DAILY 06/27/17 Allergies/Adverse Reactions: No Known Allergies Allergy (Verified 02/24/12 12:26) Review of Systems Constitutional: ABSENT: chills, fever(s), headache(s), weight gain, weight loss Eyes: ABSENT: visual disturbances Ears: ABSENT: hearing changes Cardiovascular: PRESENT: chest pain Respiratory: ABSENT: cough, hemoptysis Gastrointestinal: ABSENT: abdominal pain, constipation, diarrhea, hematemesis, hematochezia, nausea, vomiting Genitourinary: ABSENT: dysuria, hematuria Musculoskeletal: ABSENT: joint swelling Integumentary: ABSENT: rash, wounds Neurological: ABSENT: abnormal gait, abnormal speech, confusion, dizziness, focal weakness, syncope Psychiatric: ABSENT: anxiety, depression, homidical ideation, suicidal ideation Endocrine: ABSENT: cold intolerance, heat intolerance, menstrual abnormalities, polydipsia, polyuria Hematologic/Lymphatic: ABSENT: easy bleeding, easy bruising, lymphadenopathy Physical Exam Vital Signs: Temp Pulse Resp BP Pulse Ox 97.9 F 81 20 128/57 H 96 06/27/17 19:34 06/27/17 19:34 06/27/17 19:34 06/27/17 19:34 06/27/17 19:34 Intake & Output 06/26/17 06/27/17 06/28/17 06:59 06:59 06:59 Weight 74.3 kg General appearance: PRESENT: no acute distress, well-developed, well-nourished Head exam: PRESENT: atraumatic, normocephalic Eye exam: PRESENT: conjunctiva pink, EOMI, PERRLA Ear exam: PRESENT: normal external ear exam Mouth exam: PRESENT: moist, tongue midline Neck exam: PRESENT: full ROM Cardiovascular exam: PRESENT: RRR, +S1, +S2 Pulses: PRESENT: normal dorsalis pedis pul, +2 pedal pulses bilateral Vascular exam: PRESENT: normal capillary refill GI/Abdominal exam: PRESENT: normal bowel sounds, soft Rectal exam: PRESENT: deferred Neurological exam: PRESENT: alert, awake, oriented to person, oriented to place , oriented to time, oriented to situation, CN II-XII grossly intact Psychiatric exam: PRESENT: appropriate affect, normal mood Skin exam: PRESENT: dry, intact, warm Results Laboratory Results: 06/27/17 17:15 06/27/17 17:15 06/27/17 06/27/17 06/27/17 17:15 17:15 17:15 WBC 9.7 RBC 4.95 Hgb 12.4 Hct 38.0 MCV 77 L MCH 25.1 L MCHC 32.7 RDW 17.4 H Plt Count 327 Sodium 144.0 Potassium 3.1 L Chloride 103 Carbon Dioxide 31 H Anion Gap 10 BUN 21 H Creatinine 0.82 Est GFR ( Amer) > 60 Est GFR (Non-Af Amer) > 60 Glucose 107 Calcium 9.8 Total Bilirubin 0.3 AST 15 ALT 26 Alkaline Phosphatase 81 Total Protein 6.6 Albumin 3.9 TSH 1.85 Free T4 1.14 06/27/17 06/27/17 17:15 17:15 Creatine Kinase 67 CK-MB (CK-2) 0.43 Troponin I < 0.012 Assessment & Plan - Diagnosis (1) Chest pain Qualifiers: Chest pain type: unspecified Qualified Code(s): R07.9 - Chest pain, unspecified Is this a current diagnosis for this admission?: Yes (2) Type 2 diabetes mellitus Qualifiers: Diabetes mellitus complication status: with neurologic complications Diabetes mellitus complication detail: with polyneuropathy Is this a current diagnosis for this admission?: Yes - Plan Summary Plan Summary: she is admitted for evaluation of chest pain and observation
[2017-06-27] MEDS ORDERED: SIMVASTATIN 40 MG TABLET PO SCH (22:00)
[2017-06-27] MEDS ORDERED: POTASSI CL 20 MEQ/50 ML RIDER 20 MEQ/50 ML RTUPB IV ONE (22:00)
[2017-06-27] MEDS ORDERED: AMLODIPINE BESYLATE 10 MG TABLET PO SCH (22:00)
[2017-06-27] MEDS ORDERED: CHLORTHALIDONE 25 MG TABLET PO ONE (22:00)
[2017-06-27] MEDS: CYCLOSPORINE 0.05% OPH EMULSIO 0.4 ML DROPERETTE OU SCH (23:24)
[2017-06-27] MEDS: BUDESONIDE/FORMOTEROL 160-4.5 MCG 60 PUFF/6 GM MDI IH SCH (23:24)
[2017-06-28 01:10] LABS: APPEARANCE,URINE CLEAR; BILIRUBIN,URINE NEGATIVE (NEGATIVE); COLOR,URINE YELLOW; GLUCOSE, URINE >=500 mg/dL (NEGATIVE); KETONES,URINE NEGATIVE (NEGATIVE); LEUKOCYTE ESTERASE,URINE NEGATIVE (NEGATIVE); NITRITE,URINE NEGATIVE (NEGATIVE); PROTEIN,URINE NEGATIVE (NEGATIVE); URINE SPECIFIC GRAVITY 1.021
[2017-06-28 01:58] LABS: CREATINE KINASE MB 0.39 ng/mL (<4.55)
[2017-06-28 01:59] LABS: TROPONIN I < 0.012 ng/mL
[2017-06-28] MEDS ORDERED: LANSOPRAZOLE 30 MG TAB.RAP.DR PO SCH (06:00)
[2017-06-28] MEDS ORDERED: (PENDING PHARMACY ID) (Saxagliptin Hcl [Onglyza] 5 MG) PO SCH (08:00)
[2017-06-28] MEDS ORDERED: SITAGLIPTIN PHOSPHATE 50 MG TABLET PO SCH (08:00)
[2017-06-28] MEDS ORDERED: (PENDING PHARMACY ID) (Empagliflozin/Metformin Hcl [Synjardy Xr 25-1,000 Mg Tablet] 1 EACH PO SCH (08:00)
--- NOTE | 2017-06-28 08:22 | EKG REPORT ---
SEVERITY:- ABNORMAL ECG - SINUS RHYTHM VENTRICULAR PREMATURE COMPLEX LEFT ANTERIOR FASCICULAR BLOCK LEFT VENTRICULAR HYPERTROPHY ANTERIOR Q WAVES, POSSIBLY DUE TO LVH : Confirmed by: Jony Man MD 28-Jun-2017 08:21:40
[2017-06-28] MEDS ORDERED: CHLORTHALIDONE 25 MG TABLET PO SCH (10:00)
[2017-06-28] MEDS: CYCLOSPORINE 0.05% OPH EMULSIO 0.4 ML DROPERETTE OU SCH (12:00)
[2017-06-28] MEDS: BUDESONIDE/FORMOTEROL 160-4.5 MCG 60 PUFF/6 GM MDI IH SCH (12:00)
[2017-06-28 12:31] LABS: CREATINE KINASE MB 0.48 ng/mL (<4.55)
[2017-06-28 12:35] LABS: TROPONIN I < 0.012 ng/mL
--- NOTE | 2017-06-28 14:05 | DRAGON STRESS TEST REPORT ---
INTRAVENOUS LEXISCAN CARDIOLITE STRESS TEST USING SINGLE PHOTON EMMISION COMPUTERIZED TOMOGRAPHIC. DATE OF PROCEDURE: June 28, 2017, INDICATION : Chest pain CARDIAC RISK FACTORS: Hypertension, dyslipidemia RESTING EKG: Sinus rhythm without any baseline ST-T wave changes. There is nonprogression of R-wave V1 to V3. STRESS EKG: No significant changes noted with LexiScan bolus REASON FOR TERMINATION: Protocol. PROCEDURE REPORT: Baseline heart rate 83 beats per minute with blood pressure of 136/63. Patient had no significant complaints. Heart rate at 2 minutes post bolus 88 with a blood pressure of 125/43. 3 minutes post bolus heart rate 81 with blood pressure of 131/59. No significant EKG changes were noted. Patient had no significant complaints during the procedure or postprocedure. Patient injected with Aminophyllin 75 mg at 3 minutes or later after Lexiscan bolus. CONCLUSIONS: Normal EKG and hemodynamic response to IV LexiScan. NUCLEAR DATA: At rest the patient was given 11.95 millicuries of technetium 99 sestamibi injected intravenously. As per protocol rest gated SPECT images were obtained. On day of stress test, the patient was given intravenous LexiScan at a dose of 0.4 mg in 5 mL intravenously, followed by flush with normal saline. Subsequently the stress dose of 33.2 millicuries of technetium 99 sestamibi was injected intravenously. As per protocol stress gated images were obtained. NUCLEAR INTERPRETATION: Both raw and processed data were used for interpretation. Visual, qualitative, computer-generated quantitative data was used. There was good myocardial uptake of technetium compound. Motion artifact and soft tissue attenuations were noted. Increased visceral uptake was noted. No definitive areas of transient perfusion defect noted, No definitive areas of fixed perfusion defect or scars noted. EKG gated imaging showed LV EF at 53 %, rest and stress gated EF similar visually. T. I D. ratio was 1.17. Lung heart ratio noted to be within normal limits 0.27. No significant extracardiac and abnormal radiotracer activities were noted. RV free wall uptake was noted to be WNL. IMPRESSION: Also refer to comments under nuclear interpretation. Also test results needs to be interpreted in the context of pretest probability. 1. No definitive areas of transient perfusion defect noted. 2. There is no definitive scintigraphic evidence of myocardial infarction/scar. 3. EKG gated imaging shows left ventricular ejection fraction of approx. 53 %. 4. Clinical correlation requested as occasionally single vessel disease or balanced ischemia could be missed. In approximately 10% of the cases Lexiscan may not cause adequate vasodilatory stress. RECOMMENDATIONS: Aggressive risk factor modification and medical management. Further evaluation may be needed if continued symptoms or other high risk indicators are noted on clinical evaluation. Close cardiology follow-up is also recommended. Clinical correlation with echocardiogram derived ejection fraction. Inability to exercise by itself can lead to increased cardiovascular event risks. Consider cardiology consultation and or follow-up if clinically indicated. I am available for cardiology evaluation and consultation if requested by the baggage inspector, unless patient already has a upholstery handler. SERGO
--- NOTE | 2017-06-28 14:40 | XCELERA REPORT ---
[address] [address] Transthoracic Echocardiogram Report Name: ALEXIS HOWARD Age: 82 yrs Gender: Female : 1935 Patient Status: Inpatient Patient Location: [address] [place] [address] Study Date: 06/28/2017 08:50 AM Height: 68 in Weight: 164 lb BSA: 1.9 m2 Procedure: A complete two-dimensional transthoracic echocardiogram was performed (2D, M-mode, spectral and color flow Doppler). The study was technically adequate with some images being suboptimal in quality. Reason For Study: chest pain, previous abnormal EKG Ordering Physician: MICHAEL HERRERA Performed By: Damari Gaxiola Interpretation Summary The left ventricular ejection fraction is normal. There is mild concentric left ventricular hypertrophy. The left ventricle is grossly normal size. Doppler measurements suggest impaired left ventricular relaxation, which is associated with grade I/IV or mild diastolic dysfunction Wall motion cannot be accurately commented on, but no definite regional wall motion abnormalities noted. The right ventricular systolic function is normal. The left atrial size is normal. The right atrium is normal in size There is a trace amount of mitral regurgitation There is no mitral valve stenosis. There is a mild amount of aortic regurgitation There is no aortic valve stenosis There is a trace to mild amount of tricuspid regurgitation There is mild pulmonary hypertension by echo Right ventricular systolic pressure is estimated to be elevated at 30- 40mmHg. The aortic root is not well visualized but is probably normal size. The inferior vena cava appeared normal and decreased > 50% with respiration (RAP 5-10 mmHg) There is no pericardial effusion. MMode/2D Measurements & Calculations RVDd: 2.3 cm LVIDd: 4.0 cm FS: 34.5 % Ao root diam: 2.8 cm IVSd: 0.96 cm LVIDs: 2.6 cm EDV(Teich): 71.0 ml LVPWd: 0.96 cmESV(Teich): 25.4 ml Ao root area: 6.0 cm2 EF(Teich): 64.2 % LVOT diam: 2.0 cm LVOT area: 3.1 cm2 Doppler Measurements & Calculations MV E max jyoti: MV dec slope: Ao V2 max: AI max jyoti: 100.5 cm/sec 371.3 cm/sec2 155.7 cm/sec 335.6 cm/sec MV A max jyoti: MV dec time: Ao max PG: AI max P.5 cm/sec 0.27 sec 9.7 mmHg 45.1 mmHg MV E/A: 0.82 MEAGHAN(V,D): 2.7 cm2 AI dec slope: 177.8 cm/sec2 AI P1/2t: 552.8 msec LV V1 max PG: PA V2 max: TR max jyoti: 7.5 mmHg 91.9 cm/sec 281.8 cm/sec LV V1 max: PA max P.4 mmHgTR max P.0 cm/sec 31.8 mmHg Left Ventricle The left ventricle is grossly normal size. There is mild concentric left ventricular hypertrophy. The left ventricular ejection fraction is normal. Doppler measurements suggest impaired left ventricular relaxation, which is associated with grade I/IV or mild diastolic dysfunction. Wall motion cannot be accurately commented on, but no definite regional wall motion abnormalities noted. Right Ventricle The right ventricle is grossly normal size. There is normal right ventricular wall thickness. The right ventricular systolic function is normal. Atria The right atrium is normal in size. The left atrial size is normal. Interarterial septum not well visualized and not well dopplered. Cannot comment on ASD/PFO presence. Mitral Valve The mitral valve is grossly normal. There is no mitral valve stenosis. There is a trace amount of mitral regurgitation. Aortic Valve The aortic valve is not well visualized secondary to technical limitations. There is no aortic valve stenosis. There is a mild amount of aortic regurgitation. Tricuspid Valve The tricuspid valve is not well visualized, but is grossly normal. There is no tricuspid stenosis. There is a trace to mild amount of tricuspid regurgitation. There is mild pulmonary hypertension by echo. Right ventricular systolic pressure is estimated to be elevated at 30-40mmHg. Pulmonic Valve The pulmonic valve is not well visualized. Great Vessels The aortic root is not well visualized but is probably normal size. The inferior vena cava appeared normal and decreased > 50% with respiration (RAP 5-10 mmHg). Effusions There is no pericardial effusion. : MICHAEL HERRERA > Asya Hernández
[2017-06-28] MEDS ORDERED: REGADENOSON INJ 0.4 MG/5 ML DISP.SYRIN IV ONE (14:44)
[2017-06-28] MEDS ORDERED: AMINOPHYLLINE INJ/PF 250 MG/10 ML SDV IV ONE (14:44)
[2017-06-28 15:10] VITALS: BP 129/56
--- NOTE | 2017-06-28 16:03 | PDOC DISCHARGE SUMMARY ---
General - Admit/Disc Date/PCP Admission Date/Primary Care Provider: 06/27/17 15:58 MICHAEL HERRERA MD Discharge Date: 06/28/17 - Discharge Diagnosis (1) Chest pain Is this a current diagnosis for this admission?: Yes (2) Type 2 diabetes mellitus Is this a current diagnosis for this admission?: Yes (3) Hyperlipidemia Is this a current diagnosis for this admission?: Yes (4) Hypertension Is this a current diagnosis for this admission?: Yes - Additional Information Discharge Diet: As Tolerated Discharge Activity: Activity As Tolerated Home Medications: Amlodipine Besylate [Norvasc 10 mg Tablet] 10 mg PO DAILY 06/27/17 Aspirin [Aspirin 81 mg Chewable Tablet] 81 mg PO DAILY 06/27/17 Budesonide/Formoterol Fumarate [Symbicort HFA 160-4.5 mcg Inhaler 6 gm] 2 puff IH Q12 06/27/17 Chlorthalidone [Chlorthalidone 25 mg Tablet] 25 mg PO DAILY 06/27/17 Cyclosporine 0.05% Oph Emulsio [Restasis 0.05% Oph Emulsion Pf 0.4 ml] 1 drop OU Q12 06/27/17 Empagliflozin/Metformin HCl [Synjardy Xr 25-1,000 mg Tablet] 1 each PO QAM 06/27 Ipratropium/Albuterol Sulfate [Duoneb 3 ml Ampul] 3 ml NEB RTQ3HP PRN 06/27/17 Pantoprazole Sodium [Protonix] 40 mg PO Q6AM 06/27/17 Saxagliptin HCl [Onglyza] 5 mg PO QAM 06/27/17 Simvastatin [Zocor 40 mg Tablet] 40 mg PO DAILY 06/27/17 History of Present Illness History of Present Illness: ALEXIS HOWARD is a 82 year old female, She has history of type 2 diabetes mellitus, moderate persistent asthma, primarily generalized osteoarthritis, she came to the office this morning for evaluation of chest pain, the chest pain is vague in character,the pain is in the upper part of the chest also also seems to affect the shoulders the pain is of 3-4 weeks duration, the pain is not typical in character is not provoked by exertion or emotional is not relieved by rest, in the office a 12-lead EKG was done, it was sinus rhythm there was Q- wave in septal leads 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 Because she has multiple risk factors for ischemic heart disease including type 2 diabetes mellitus, hypertension, age and also the fact that the EKG was abnormal it was felt that she should be admitted to the hospital to rule out acute coronary syndrome. Hospital Course Hospital Course: Patient was admitted for the management of suspicious chest pain. 3 sets of cardiac enzymes was negative for acute HI. She underwent Lexiscan Cardiolite stress test today, it was negative for any acute reversibility to suggest ischemia there was no scintigraphic evidence of scar or old HI. A 2D echo was done he showed preserved ejection fraction of left ventricle, grade 1 diastolic dysfunction left ventricle there is no significant valvular heart disease. Physical Exam Vital Signs: Temp Pulse Resp BP Pulse Ox 97.9 F 81 15 129/56 H 97 06/28/17 15:08 06/28/17 15:08 06/28/17 15:08 06/28/17 15:08 06/28/17 15:08 Intake & Output 06/27/17 06/28/17 06/29/17 06:59 06:59 06:59 Intake Total 610 0 Output Total 300 950 Balance 310 -950 Weight 74.3 kg General appearance: PRESENT: no acute distress, well-developed, well-nourished Head exam: PRESENT: atraumatic, normocephalic Eye exam: PRESENT: conjunctiva pink, EOMI, PERRLA Ear exam: PRESENT: normal external ear exam Mouth exam: PRESENT: moist, tongue midline Neck exam: PRESENT: full ROM Respiratory exam: PRESENT: clear to auscultation levon Cardiovascular exam: PRESENT: RRR, +S1, +S2 Pulses: PRESENT: normal dorsalis pedis pul, +2 pedal pulses bilateral Vascular exam: PRESENT: normal capillary refill GI/Abdominal exam: PRESENT: normal bowel sounds, soft Rectal exam: PRESENT: deferred Neurological exam: PRESENT: alert, awake, oriented to person, oriented to place , oriented to time, oriented to situation, CN II-XII grossly intact Psychiatric exam: PRESENT: appropriate affect, normal mood Skin exam: PRESENT: dry, intact, warm Results Laboratory Results: 06/27/17 17:15 06/27/17 17:15 06/27/17 06/27/17 06/27/17 17:15 17:15 17:15 WBC 9.7 RBC 4.95 Hgb 12.4 Hct 38.0 MCV 77 L MCH 25.1 L MCHC 32.7 RDW 17.4 H Plt Count 327 Sodium 144.0 Potassium 3.1 L Chloride 103 Carbon Dioxide 31 H Anion Gap 10 BUN 21 H Creatinine 0.82 Est GFR ( Amer) > 60 Est GFR (Non-Af Amer) > 60 Glucose 107 Calcium 9.8 Total Bilirubin 0.3 AST 15 ALT 26 Alkaline Phosphatase 81 Total Protein 6.6 Albumin 3.9 TSH 1.85 Free T4 1.14 Urine Color Urine Appearance Urine pH Ur Specific Tiger Urine Protein Urine Glucose (UA) Urine Ketones Urine Blood Urine Nitrite Ur Leukocyte Esterase Urine WBC (Auto) Urine RBC (Auto) 06/28/17 00:35 WBC RBC Hgb Hct MCV MCH MCHC RDW Plt Count Sodium Potassium Chloride Carbon Dioxide Anion Gap BUN Creatinine Est GFR ( Amer) Est GFR (Non-Af Amer) Glucose Calcium Total Bilirubin AST ALT Alkaline Phosphatase Total Protein Albumin TSH Free T4 Urine Color YELLOW Urine Appearance CLEAR Urine pH 8.0 Ur Specific Tiger 1.021 Urine Protein NEGATIVE Urine Glucose (UA) >=500 H Urine Ketones NEGATIVE Urine Blood NEGATIVE Urine Nitrite NEGATIVE Ur Leukocyte Esterase NEGATIVE Urine WBC (Auto) 0 Urine RBC (Auto) 2 06/27/17 06/27/17 06/28/17 17:15 17:15 01:10 Creatine Kinase 67 57 CK-MB (CK-2) 0.43 Troponin I < 0.012 06/28/17 06/28/17 06/28/17 01:10 11:24 11:24 Creatine Kinase 57 CK-MB (CK-2) 0.39 0.48 Troponin I < 0.012 < 0.012 Qualifiers - * PATEINT BEING DISCHARGED WITH ANY OF THE FOLLOWING DIAGNOSIS?: No VTE patient discharged on overlapping Therapy?: Yes
--- NOTE | 2017-06-30 10:16 | Physician Advisory Note ---
Physician Advisor ProgressNote .: Pursuant to the plan for [facility], I have reviewed the medical record for this patient. Physician Advisor Statement: With nonspecific "symptom dx.s" such as CP, please consistently state "most likely caused by " in notes/DCSummary. Thanks! CK
== END 2017-06-28 15:28 | disposition home or self-care (01) ==
LOC: 3N 15:58 → INTOOBSV 15:58
PROVIDERS: ADMIT Internal Medicine; ATTEND Internal Medicine
DX: R07.9 Chest pain, unspecified (principal); E11.42 Type 2 diabetes mellitus with diabetic polyneuropathy; E78.5 Hyperlipidemia, unspecified; I10 Essential (primary) hypertension; M15.0 Primary generalized (osteo)arthritis; R94.31 Abnormal electrocardiogram [ECG] [EKG]; J44.9 Chronic obstructive pulmonary disease, unspecified; Z79.899 Other long term (current) drug therapy; Z79.82 Long term (current) use of aspirin; Z87.01 Personal history of pneumonia (recurrent); Z79.51 Long term (current) use of inhaled steroids
CPT/HCPCS: 36415 ×2; 84439; 82553 ×2; 82962 ×2; 82550 ×2; 84443; 85027; 80076; 80048; 81001; 84484 ×2; 93306; 93017; 78452; 93005; 93010; G0378 ×2; G0379; A9500; J2785; A9270 ×3; J3480; J0280; Q9969; J3490

== ENCOUNTER → 2017-07-11 | Outpatient (CLI) | payer MEDICARE, OTHER ==
--- NOTE | 2017-07-11 12:42 | RADIOLOGY REPORT (SQ) ---
EXAM DESCRIPTION: ELBOW LEFT AP/LAT COMPLETED DATE/TIME: 07/11/2017 12:29 pm REASON FOR STUDY: PAIN IN LEFT ELBOW M25.522 PAIN IN LEFT ELBOW COMPARISON: None. NUMBER OF VIEWS: Four views. TECHNIQUE: AP, lateral, and both oblique radiographic images acquired of the left elbow. LIMITATIONS: None. FINDINGS: MINERALIZATION: Normal. BONES: No acute fracture or dislocation. No worrisome bone lesions. JOINT: No effusion. Mild degenerative sclerotic change of the articulating surfaces of the olecranon and adjacent humerus. Minimal degenerative spurring posterior to the olecranon. SOFT TISSUES: No soft tissue swelling. No foreign body. OTHER: No other significant finding. IMPRESSION: Degenerative changes at the level of the olecranon fossa that may relate to the patient' s clinical symptoms. TECHNICAL DOCUMENTATION: JOB ID: [id number] [employer]- All Rights Reserved Reading location - IP/workstation name: [email or web address]
== END ==
LOC: OD 12:14
PROVIDERS: ATTEND Internal Medicine
DX: M25.522 Pain in left elbow (principal)

== ENCOUNTER → 2017-08-14 | Outpatient (CLI) | payer MEDICARE, OTHER ==
--- NOTE | 2017-08-14 16:57 | RADIOLOGY REPORT (SQ) ---
EXAM DESCRIPTION: VENOUS UNILATERAL LOWER COMPLETED DATE/TIME: 08/14/2017 4:45 pm REASON FOR STUDY: RLE SWELLING R22.41 LOCALIZED SWELLING, MASS AND LUMP, RIGHT LOWER LIMB COMPARISON: None. TECHNIQUE: Dynamic and static rivas scale and color images acquired of the right leg venous system. S elected spectral images acquired with additional compression and augmentation maneuvers. The contrala teral common femoral vein and saphenofemoral junction were also imaged. Images stored on PACS. LIMITATIONS: None. FINDINGS: RIGHT COMMON FEMORAL: Normal phasicity, compression and augmentation. No visualized echogenic material on g ray scale. No defects on color images. FEMORAL: Normal compression and augmentation. No visualized echogenic material on rivas scale. No defe cts on color images. POPLITEAL: Normal compression, augmentation. No visualized echogenic material on rivas scale. No defec ts on color images. CALF VESSELS: Normal compression, augmentation. No visualized echogenic material on rivas scale. No de fects on color images. GSV and SSV: Normal compression, augmentation. No visualized echogenic material on rivas scale. No def ects on color images. ANY DEEP VENOUS INSUFFICIENCY: Not evaluated. ANY EVIDENCE OF POPLITEAL CYST: No. OTHER: No other significant finding. LEFT COMMON FEMORAL VEIN AND SAPHENOFEMORAL JUNCTION: Normal phasicity, compression and augmentation. No visualized echogenic material on rivas scale. No de fects on color images. IMPRESSION: NO EVIDENCE OF DVT OR SVT IN THE RIGHT LEG. TECHNICAL DOCUMENTATION: JOB ID: [id number] [employer]- All Rights Reserved Reading location - IP/workstation name: [email or web address]
== END ==
LOC: SP 15:50
PROVIDERS: ATTEND Internal Medicine
DX: R22.41 Localized swelling, mass and lump, right lower limb (principal)
CPT/HCPCS: 93971

== ENCOUNTER → 2017-08-18 | Outpatient (CLI) | payer MEDICARE, OTHER ==
--- NOTE | 2017-08-18 11:27 | RADIOLOGY REPORT (SQ) ---
EXAM DESCRIPTION: BARIUM SWALLOW ESOPHAGUS COMPLETED DATE/TIME: 08/18/2017 8:45 am REASON FOR STUDY: DYSPHAGIA (R13.13) R13.13 DYSPHAGIA, PHARYNGEAL PHASE COMPARISON: CT chest 01/08/2017 TECHNIQUE: Under fluoroscopic guidance, patient ingested effervescent granules followed by thick and thin barium. Fluoroscopic spot images and routine radiographic images acquired and stored on PACS. 12 MM BARIUM TABLET GIVEN: Yes. No significant delay in passage. LIMITATIONS: None. FLUOROSCOPY TIME: FLUORO TIME: Creatinine 1.14 5 series of digital images saved to PACS. FINDINGS: NEUROMUSCULAR COORDINATION OF SWALLOW: Normal. No aspiration. ESOPHAGEAL MOTILITY: Normal peristalsis. No esophageal spasm. ESOPHAGEAL MUCOSA: Normal mucosa without masses or ulceration. GASTRO-ESOPHAGEAL JUNCTION: Small hiatal hernia. Unprovoked gastroesophageal reflux to the cervical esophagus NON-GI TRACT STRUCTURES: No significant finding. OTHER: No other significant finding. IMPRESSION: Small hiatal hernia. Unprovoked gastroesophageal reflux to the cervical esophagus COMMENT: Quality ID 145: Final reports for procedures using fluoroscopy that document radiation exp osure indices, or exposure time and number of fluorographic images (if radiation exposure indices are not available) TECHNICAL DOCUMENTATION: JOB ID: [id number] [employer]- All Rights Reserved Reading location - IP/workstation name: [email or web address]
== END ==
LOC: RAD 08:08
PROVIDERS: ATTEND Internal Medicine
DX: R13.13 Dysphagia, pharyngeal phase (principal); K44.9 Diaphragmatic hernia without obstruction or gangrene
CPT/HCPCS: 74220

== ENCOUNTER → 2017-11-07 | Outpatient (CLI) | payer MEDICARE, OTHER ==
--- NOTE | 2017-11-07 09:31 | WOMENS IMAGING REPORT ---
EXAM DESCRIPTION: U/S ABDOMEN LIMITED COMPLETED DATE/TIME: 11/07/2017 8:35 am REASON FOR STUDY: DISEASEE OF PANCREAS, UNSPECIFIED K86.9 DISEASE OF PANCREAS, UNSPECIFIED COMPARISON: 02/09/2016, 12/07/2016 TECHNIQUE: Dynamic and static grayscale images acquired of the abdomen and recorded on PACS. Additio nal selected color Doppler and spectral images recorded. LIMITATIONS: None. FINDINGS: PANCREAS: Thin walled cystic lesion in the pancreatic head which has been followed since 2 016. This measures 1.8 x 2.2 x 2.4 cm on the current study. No pancreatic ductal dilatation. LIVER: Fatty change. No masses. LIVER VASCULATURE: Normal directional flow of the main portal vein and hepatic veins. GALLBLADDER: No stones. Normal wall thickness. No pericholecystic fluid. ULTRASOUND-DETECTED CHAPMAN'S SIGN: Negative. INTRAHEPATIC DUCTS AND COMMON DUCT: CBD and intrahepatic ducts normal caliber. No filling defects. INFERIOR VENA CAVA: Normal flow. AORTA: No aneurysm. RIGHT KIDNEY: Normal size. Normal echogenicity. No solid or suspicious masses. No hydronephrosis. No calcifications. PERITONEAL AND RIGHT PLEURAL SPACE: No ascites or effusions. OTHER: No other significant findings. IMPRESSION: Slight increase in size of cystic lesion in the pancreatic head. TECHNICAL DOCUMENTATION: JOB ID: [id number] [employer]- All Rights Reserved Reading location - IP/workstation name: [email or web address]
== END ==
LOC: WI 07:59
PROVIDERS: ATTEND Internal Medicine Gastroenterology
DX: K86.9 Disease of pancreas, unspecified (principal)
CPT/HCPCS: 76705

== ENCOUNTER → 2017-11-21 | Outpatient (CLI) | payer MEDICARE, OTHER ==
--- NOTE | 2017-11-21 15:14 | WOMENS IMAGING REPORT ---
EXAM DESCRIPTION: 3D SCREENING MAMMO BILAT COMPLETED DATE/TIME: 11/21/2017 2:49 pm REASON FOR STUDY: SCREENING MAMMO N64.4 MASTODYNIA COMPARISON: [id number] TECHNIQUE: Standard craniocaudal and mediolateral oblique views of each breast recorded using digita l acquisition and breast tomosynthesis. LIMITATIONS: None. FINDINGS: No masses, calcifications or architectural distortion. No areas of suspicion. Read with the assistance of CAD. .[facility] - R2 Cenova Version 1.3 .[facility] Imaging - R2 Cenova Version 1.3 .[facility] Imaging - R2 Cenova Version 2.4 .[facility] [place] R2 Cenova Version 2.4 .[facility] - R2 Super[employer]er Version 9.2 IMPRESSION: NORMAL MAMMOGRAM. BIRADS 1. BREAST DENSITY: b. There are scattered areas of fibroglandular density. BIRAD: 1 NEGATIVE RECOMMENDATION: ROUTINE SCREENING COMMENT: The patient has been notified of the results by letter per MQSA requirements. Additional no tification policies are in place for contacting patient with suspicious or incomplete findings. Quality ID #225: The [employer] recommends an annual screening mammogram for women aged 40 years or over. This facility utilizes a reminder system to ensure that all patients receive reminder letters, and/or direct phone calls for appointments. This includes reminders for routine scr eening mammograms, diagnostic mammograms, or other Breast Imaging Interventions when appropriate. Th is patient will be placed in the appropriate reminder system. The [employer] (ACR) has developed recommendations for screening MRI of the breast s in certain patient populations, to be used in conjunction with mammography. Breast MRI surveillanc e may be appropriate for women with more than 20% lifetime risk of developing breast cancer as deter mined by genetic testing, significant family history of the disease, or history of mantle radiation f or Hodgkins Disease. ACR Practice Guidelines 2008. DBT Technology DBT is a type of tomographic mammography. With conventional mammography, overlapping breast tissue ma y make lesions difficult to detect, even with good compression. DBT uses an x-ray tube that rotates a round the breast, taking images at different angles. These images are then combined to create thin sl ices of the breast that the radiologist can view as a 3D reconstruction. The [employer] unit can perform full-field digital mammograms (2D imaging); or DBT (3D imaging); or both, in a combination mode that quickly performs both the mammogram and the tomosynthesis scan while the breast is still compressed. PQRS 6045F: Fluoroscopic imaging is not utilized for breast tomosynthesis. TECHNICAL DOCUMENTATION: FINDING NUMBER: (1) ASSESSMENT: (1) JOB ID: [id number] [employer]- All Rights Reserved Reading location - IP/workstation name: [email or web address]
== END ==
LOC: WI 14:22
PROVIDERS: ATTEND Internal Medicine
DX: Z12.31 Encounter for screening mammogram for malignant neoplasm of breast (principal)
CPT/HCPCS: 77063; 77067

== ENCOUNTER → 2018-06-21 | Outpatient (CLI) | payer MEDICARE, OTHER ==
--- NOTE | 2018-06-21 15:20 | RADIOLOGY REPORT (SQ) ---
EXAM DESCRIPTION: CT ABD/PELVIS NO ORAL OR IV COMPLETED DATE/TIME: 06/21/2018 2:56 pm REASON FOR STUDY: R10.32 LEFT LOWER QUADRANT PAIN R10.32 LEFT LOWER QUADRANT PAIN COMPARISON: None. TECHNIQUE: CT scan of the abdomen and pelvis performed without intravenous or oral contrast. Images reviewed with lung, soft tissue, and bone windows. Reconstructed coronal and sagittal MPR images revi ewed. All images stored on PACS. All CT scanners at this facility use dose modulation, iterative reconstruction, and/or weight based d osing when appropriate to reduce radiation dose to as low as reasonably achievable (ALARA). [facility]: Dose Right [facility]: CareDose [facility]: Dose Right [facility]: Teradose 4D [facility]: Smart Technologies RADIATION DOSE: CT Rad equipment meets quality standard of care and radiation dose reduction techniq ues were employed. CTDIvol: 6.9 mGy. DLP: 346 mGy-cm.mGy. LIMITATIONS: Artifact from right hip arthroplasty. FINDINGS: LOWER CHEST: No significant findings. No nodules or infiltrates. NON-CONTRASTED LIVER, SPLEEN, ADRENALS: Evaluation limited by lack of IV contrast. No identified sign ificant masses. PANCREAS: Known 2 cm low-density lesion pancreatic head which has been followed since 2016. GALLBLADDER: No identified stones by CT criteria. No inflammatory changes to suggest cholecystitis. RIGHT KIDNEY AND URETER: No suspicious masses. Assessment limited by lack of IV contrast. No signif icant calcifications. No hydronephrosis or hydroureter. LEFT KIDNEY AND URETER: No suspicious masses. Assessment limited by lack of IV contrast. No signifi cant calcifications. No hydronephrosis or hydroureter. AORTA AND RETROPERITONEUM: No aneurysm. No retroperitoneal masses or adenopathy. BOWEL AND PERITONEAL CAVITY: Diffuse diverticulosis. No obvious masses or inflammatory changes. No f ree fluid. APPENDIX: Normal. PELVIS, BLADDER, AND ABDOMINAL WALL:No abnormal masses. No free fluid. Bladder normal. BONES: Nothing acute. OTHER: No other significant finding. IMPRESSION: Diverticulosis. Stable cystic pancreatic head lesion. No acute findings. COMMENT: Quality ID # 436: Final reports with documentation of one or more dose reduction techniques (e.g., Automated exposure control, adjustment of the mA and/or kV according to patient size, use of iterative reconstruction technique) TECHNICAL DOCUMENTATION: JOB ID: [id number]- All Rights Reserved Reading location - IP/workstation name: [email or web address]
--- NOTE | 2018-06-21 15:20 | RADIOLOGY REPORT (SQ) ---
EXAM DESCRIPTION: L SPINE WHOLE COMPLETED DATE/TIME: 06/21/2018 2:51 pm REASON FOR STUDY: M54.5 LOW BACK PAIN R10.32 LEFT LOWER QUADRANT PAIN COMPARISON: None. NUMBER OF VIEWS: Five views including obliques. TECHNIQUE: AP, lateral, oblique, and sacral radiographic images acquired of the lumbar spine. LIMITATIONS: None. FINDINGS: MINERALIZATION: Normal. SEGMENTATION: Normal. No transitional anatomy. ALIGNMENT: S Shaped scoliosis VERTEBRAE: Maintained height. No fracture or worrisome bone lesion. DISCS: Multilevel moderate to severe disc degeneration with associated hypertrophic spurring POSTERIOR ELEMENTS: Pedicles and facets are intact. No pars defect or posterior arch defects. HARDWARE: None in the spine. PARASPINAL SOFT TISSUES: Normal. PELVIS: Intact as visualized. No fractures or worrisome bone lesions. SI joints intact. OTHER: No other significant finding. IMPRESSION: Moderate S shaped scoliosis with multilevel moderate to severe disc degeneration and hyp ertrophic spurring. TECHNICAL DOCUMENTATION: JOB ID: [id number] [employer]- All Rights Reserved Reading location - IP/workstation name: [email or web address]
== END ==
LOC: RAD 14:30
PROVIDERS: ATTEND Internal Medicine
DX: K57.90 Diverticulosis of intestine, part unspecified, without perforation or abscess without bleeding (principal); R10.32 Left lower quadrant pain; M54.5 Low back pain; M41.86 Other forms of scoliosis, lumbar region
CPT/HCPCS: 72110; 74176

== ENCOUNTER → 2019-12-17 | Outpatient (CLI) | payer MEDICARE, OTHER ==
--- NOTE | 2019-12-17 12:53 | RADIOLOGY REPORT (SQ) ---
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 TECHNIQUE: Images of the axial and proximal appendicular skeleton are obtained, along with lateral s kull and frontal chest films. LIMITATIONS: None. FINDINGS: AP CHEST: Dextroscoliosis in the lower thoracic spine. No infiltrates or effusions. Norm al heart size. LATERAL SKULL: No worrisome bone lesions. AP BOTH HUMERI: Glenohumeral degenerative joint changes. Marked narrowing of the subacromial sp spac es. No osseous lesions. TWO-VIEW LUMBAR SPINE: Levoscoliosis. Multilevel degenerative disc disease and spondylosis. Facet a rthropathy. TWO-VIEW THORACIC SPINE: Dextroscoliosis in the lower thoracic spine. Marginal osteophytes in the lo wer thoracic spine. AP PELVIS: No worrisome bone lesions. AP BOTH FEMURS: Right hip arthroplasty. Right knee arthroplasty. Left knee arthroplasty. OTHER: No other significant finding. IMPRESSION: No worrisome bone lesions. Findings as described. TECHNICAL DOCUMENTATION: JOB ID: [id number] [employer]- All Rights Reserved Reading location - IP/workstation name: [email or web address]
== END ==
LOC: RAD 08:59
PROVIDERS: ATTEND Internal Medicine
DX: M41.25 Other idiopathic scoliosis, thoracolumbar region (principal)
CPT/HCPCS: 77075